=== PATIENT | female | born 1970 | race African-American/Black ===

== ENCOUNTER 2017-08-19 08:49 | Emergency (ER) | payer MEDICARE, MEDICAID ==
[~2017-08-19] VITALS: Ht 172.7 cm; Wt 110.0 kg
[~2017-08-19 08:49] MED LIST: BENZ1TAB PO; DEPA500T3 PO; HALO10 PO; HYDR-3133 PO; PERM5CRE4 TOP; PRED20 PO; TRIA.1%T EX
[2017-08-19 09:09] VITALS: BP 173/114; PULSE 95; RESP 20; TEMP 98.9; O2SAT 99
[2017-08-19] MEDS ORDERED: BENZ0.5T PO (09:15)
[2017-08-19] MEDS ORDERED: ZIPR1CAP12 PO (09:15)
--- NOTE | 2017-08-19 09:17 | PD ---
HPI Chief Complaint: Pain: Acute or Chronic Time Seen by Provider: 09:16 Travel History International Travel<30 days: No Contact w/Intl Traveler<30days: No Traveled to known affect area: No History of Present Illness HPI 47-year-old female came to the emergency room with history of unable to move her legs. Patient came by ambulance. She seemed to have a very flat affect and upon asking the real reason for her visit she just said that she did not know and was not feeling very good this morning. She did tell the nurse that she has been depressed. She has history of bipolar disorder. I also noticed that her blood pressure was very high. It was 175/115. Patient has history of hypertension but hasn't taken her blood pressure medication and a very long time she said. She last saw her primary care 2 years ago. She has been taking her psych medications however. Upon asking patient says that she has not had much appetite lately. She ate last meal last night and some friends gave her the food but she did not finish it. She doesn't remember the last time she took a shower. She has children and she said they're more than one but she doesn't know how many they don't live with her. Patient is quite obese however. As per the nurse she was able to get out of the ambulance stretcher and go back to the emergency room stretcher on her own without assistance. She denies of any suicidal ideations or hearing voices. [facility] Past Medical History Narrative Medical List of her past medical, surgical, social and family history is reviewed from the nursing note. Arthritis: No Asthma: No Autoimmune Disease: No Blood Disorders: No Bipolar Disorder: Yes Anxiety: Yes Depression: Yes Heart Rhythm Problems: No Cancer: No Cardiovascular Problems: No High Cholesterol: No Chemotherapy: No Chest Pain: No Congestive Heart Failure: No COPD: No Cerebrovascular Accident: No Diabetes: No Diminished Hearing: No Endocrine: No Gastrointestinal Disorders: No GERD: No Glaucoma: No Genitourinary: No Headaches: No Hiatal Hernia: No Hypertension: Yes Immune Disorder: No Implanted Vascular Access Dvce: No Kidney Stones: No Musculoskeletal: No Neurologic: No Psychiatric: Yes Reproductive: No Respiratory: No Migraines: No Myocardial Infarction: No Radiation Therapy: No Renal Failure: No Seizures: No Sickle Cell Disease: No Sleep Apnea: No Thyroid Disease: No Ulcer: No PNEUMOCCOCAL Vaccine (Year): 2 ?: Unknown : 1 Para: 1 Ectopic : No Ovarian Cysts: No Tubal Ligation: No Past Surgical History Abdominal Surgery: No AICD: No Arteriovenous Shunt: No Body Medical Devices: DENIES ANY MEDICAL CONDITIONS; ONLY SURGERY Cardiac Surgery: No Section: Yes Ear Surgery: No Endocrine Surgery: No Eye Surgery: No Genitourinary Surgery: No Gynecologic Surgery: No Hysterectomy: No Insulin Pump: No Joint Replacement: No Neurologic Surgery: No Oral Surgery: No Pacemaker: No Thoracic Surgery: No Other Surgery: No Social History Alcohol Use: Yes Tobacco Use: Yes (OCC) Substance Use: No Allergies-Medications (Allergen,Severity, Reaction): Coded Allergies: No Known Allergies (Verified , 08/21/17) Comments No known drug allergies. Reported Meds & Prescriptions Reported Meds & Active Scripts Active Amlodipine (Amlodipine Besylate) 10 Mg Tab 10 Mg PO DAILY Reported Ziprasidone 80 Mg Cap 80 Mg PO HS Narrative Medication List of her home medications reviewed from the nursing note. Review of Systems Except as stated in HPI: all other systems reviewed are Neg Physical Exam Narrative GENERAL: Awake, alert, morbidly obese, no obvious distress SKIN: Focused skin assessment warm/dry. HEAD: Atraumatic. Normocephalic. EYES: Pupils equal and round. No scleral icterus. No injection or drainage. ENT: No nasal bleeding or discharge. Dry mucous mental NECK: Trachea midline. No JVD. CARDIOVASCULAR: Regular rate and rhythm. No murmur appreciated. RESPIRATORY: No accessory muscle use. Clear to auscultation. Breath sounds equal bilaterally. GASTROINTESTINAL: Abdomen soft, non-tender, nondistended. Hepatic and splenic margins not palpable. MUSCULOSKELETAL: No obvious deformities. No clubbing. No cyanosis. No edema. NEUROLOGICAL: Awake and alert. No obvious cranial nerve deficits. Motor grossly within normal limits. Normal speech. PSYCHIATRIC: Appropriate mood and affect; insight and judgment normal. Data Data Last Documented VS Vital Signs Date Time Temp Pulse Resp B/P (MAP) Pulse Ox O2 Delivery O2 Flow Rate FiO2 08/19/17 13:00 08/19/17 12:57 77 17 100 Room Air 08/19/17 09:09 98.9 Orders Orders Complete Blood Count With Diff (08/19/17 09:28) Basic Metabolic Panel (Bmp) (08/19/17 09:28) Comprehensive Metabolic Panel (08/19/17 09:28) Urinalysis - C+S If Indicated (08/19/17 09:28) Drug Screen, Random Urine (08/19/17 09:28) Alcohol (Ethanol) (08/19/17 09:28) Clonidine (Catapres) (08/19/17 09:30) Urine Culture (08/19/17 09:40) Sodium Chlor 0.9% 1000 Ml Inj (Ns 1000 M (08/19/17 11:00) Nitrofurantoin Monohyd Macrocr (Macrobid (08/19/17 11:00) Sodium Chlorid 0.9% 500 Ml Inj (Ns 500 M (08/19/17 11:00) Labs Laboratory Tests Test 08/19/17 09:40 08/19/17 09:45 Urine Color DREW Urine Turbidity HAZY Urine pH 5.5 Urine Specific [place] 1.042 Urine Protein 100 mg/dL Urine Glucose (UA) TRACE mg/dL Urine Ketones TRACE mg/dL Urine Occult Blood NEG Urine Nitrite NEG Urine Bilirubin NEG Urine Urobilinogen 4.0 MG/DL Urine Leukocyte Esterase SMALL Urine RBC 3 /hpf Urine WBC 10 /hpf Urine Squamous Epithelial Cells 5 /hpf Urine Bacteria FEW /hpf Urine Hyaline Casts 14 /lpf Urine Mucus MANY /lpf Microscopic Urinalysis Comment CULTURE INDICATED Urine Opiates Screen NEG Urine Barbiturates Screen NEG Urine Amphetamines Screen NEG Urine Benzodiazepines Screen NEG Urine Cocaine Screen NEG Urine Cannabinoids Screen NEG White Blood Count 6.4 TH/MM3 Red Blood Count 4.75 MIL/MM3 Hemoglobin 11.5 GM/DL Hematocrit 36.1 % Mean Corpuscular Volume 76.1 FL Mean Corpuscular Hemoglobin 24.2 PG Mean Corpuscular Hemoglobin Concent 31.8 % Red Cell Distribution Width 17.9 % Platelet Count 273 TH/MM3 Mean Platelet Volume 9.2 FL Neutrophils (%) (Auto) 59.8 % Lymphocytes (%) (Auto) 29.4 % Monocytes (%) (Auto) 10.0 % Eosinophils (%) (Auto) 0.4 % Basophils (%) (Auto) 0.4 % Neutrophils # (Auto) 3.9 TH/MM3 Lymphocytes # (Auto) 1.9 TH/MM3 Monocytes # (Auto) 0.6 TH/MM3 Eosinophils # (Auto) 0.0 TH/MM3 Basophils # (Auto) 0.0 TH/MM3 CBC Comment DIFF FINAL Differential Comment Blood Urea Nitrogen 14 MG/DL Creatinine 1.26 MG/DL Random Glucose 89 MG/DL Total Protein 8.9 GM/DL Albumin 4.1 GM/DL Calcium Level 9.2 MG/DL Alkaline Phosphatase 62 U/L Aspartate Amino Transf (AST/SGOT) 24 U/L Alanine Aminotransferase (ALT/SGPT) 28 U/L Total Bilirubin 1.2 MG/DL Sodium Level 139 MEQ/L Potassium Level 3.4 MEQ/L Chloride Level 105 MEQ/L Carbon Dioxide Level 26.2 MEQ/L Anion Gap 8 MEQ/L Estimat Glomerular Filtration Rate 55 ML/MIN Ethyl Alcohol Level LESS THAN 3 MG/DL MDM Medical Decision Making Medical Screen Exam Complete: Yes Emergency Medical Condition: Yes Medical Record Reviewed: Yes Differential Diagnosis Hypertension, noncompliance with medication, depression Narrative Course 10:43 AM blood test results are back. Patient was initially given clonidine for her hypertension. Renal function is slightly elevated. She didn't appear dehydrated and I'll give her a liter fluid bolus. Patient will be discharged home on amlodipine. I will discharge her home after the. Procedures EKG Prior to Arrival: No Diagnosis Primary Impression: Depression Qualified Codes: F34.1 - Dysthymic disorder Additional Impressions: Hypertension Qualified Codes: I10 - Essential (primary) hypertension Noncompliance with medication regimen UTI (urinary tract infection) Qualified Codes: N39.0 - Urinary tract infection, site not specified Dehydration Referrals: Primary Care Physician 2 days Additional Instructions: Please return to the ER if the condition worsens or any other new concerns. Please fill the medication and start taking them for your blood pressure. Uncontrolled high blood pressure can lead to stroke, heart attack, kidney failure, blindness etc. Follow-up with your primary care. Follow-up with your psychiatrist as well. Med/Other Pt SpecificInfo: Prescription(s) given Scripts Amlodipine (Amlodipine) 10 Mg Tab 10 MG PO DAILY for Blood Pressure Management, #30 TAB 0 Refills Prov: Amber Arriola MD 08/19/17 Disposition: 01 DISCHARGE HOME Condition: Stable Amber Arriola MD Aug 19, 2017 09:16
[2017-08-19] MEDS ORDERED: cloNIDine HCL 0.1 MG TAB PO ONE (09:30)
[2017-08-19 10:14] LABS: AUTOMATED NEUTROPHIL # 3.9 TH/MM3 (1.8-7.7); BASOPHIL % 0.4 % (0.0-2.0); EOSINOPHIL % 0.4 % (0.0-4.0); HEMATOCRIT 36.1 % (35.0-46.0); HEMO FLAGS DIFF FINAL; LYMPH % 29.4 % (9.0-44.0); LYMPHOCYTE # 1.9 TH/MM3 (1.0-4.8); MEAN CELL VOLUME 76.1 FL (80.0-100.0); MEAN CORPUSCULAR HEMOGLOBIN 24.2 PG (27.0-34.0); MEAN CORPUSCULAR HGB CONC 31.8 % (32.0-36.0); NEUT % 59.8 % (16.0-70.0); PLATELET COUNT 273 TH/MM3 (150-450); RED BLOOD COUNT 4.75 MIL/MM3 (4.00-5.30); RED CELL DISTRIBUTION WIDTH 17.9 % (11.6-17.2); WHITE BLOOD COUNT 6.4 TH/MM3 (4.0-11.0)
[2017-08-19 10:27] LABS: ANION GAP 8 MEQ/L (5-15); AST (GOT) 24 U/L (15-37); BICARBONATE 26.2 MEQ/L (21.0-32.0); BLOOD UREA NITROGEN 14 MG/DL (7-18); CHLORIDE 105 MEQ/L (98-107); GLOMERULAR FILTRATION RATE 55 ML/MIN (>89); POTASSIUM 3.4 MEQ/L (3.5-5.1); SODIUM (NA) 139 MEQ/L (136-145)
[2017-08-19 10:30] LABS: ALKALINE PHOSPHATASE 62 U/L (45-117); ALT (GPT) 28 U/L (10-53); TOTAL BILIRUBIN ADULT 1.2 MG/DL (0.2-1.0)
[2017-08-19 10:35] LABS: ALCOHOL LESS THAN 3 MG/DL (0-5)
[2017-08-19 10:38] LABS: BACTERIA, URINE FEW /hpf; BLOOD, URINE NEG (NEG); COMMENT (UR) CULTURE INDICATED; CULTURE IF INDICATED CULTURE INDICATED; GLUCOSE,URINE TRACE mg/dL (NEG); HYALINE CAST, URINE 14 /lpf (RARE); KETONE, URINE TRACE mg/dL (NEG); MUCUS URINE MANY /lpf (OCC); NITRITE,URINE NEG (NEG); PH, URINE 5.5 (5.0-8.5); SQUAMOUS EPITHELIAL CELL URINE 5 /hpf (0-5)
[2017-08-19 10:41] LABS: URINE COLOR AMBER (YELLW/STRAW)
[2017-08-19] MEDS ORDERED: AMLO10TA2 PO (10:45)
[2017-08-19] MEDS ORDERED: MACR100C2 PO (10:48)
[2017-08-19] MEDS ORDERED: SODIUM CHLORID 0.9% 500 ML INJ 500 ML IV ONE (11:00)
[2017-08-19] MEDS ORDERED: SODIUM CHLOR 0.9% 1000 ML INJ 1,000 ML IV ONE (11:00)
[2017-08-19] MEDS ORDERED: NITROFURANTOIN MONOHYD MACROCR 100 MG CAP PO ONE (11:00)
[2017-08-19 12:57] VITALS: BP 176/89; PULSE 77; RESP 17; O2SAT 100
== END 2017-08-19 13:17 | disposition home or self-care (01) ==
LOC: NEPD 08:49
DX: F34.1 Dysthymic disorder (principal); I10 Essential (primary) hypertension; N39.0 Urinary tract infection, site not specified; B96.89 Other specified bacterial agents as the cause of diseases classified elsewhere; Z72.0 Tobacco use; Z79.899 Other long term (current) drug therapy
CPT/HCPCS: 80053; 80307; 81001; 85025; 87086; 96360; 99284; J7030; J7040

== ENCOUNTER 2017-08-21 05:50 | Emergency (ER) | payer MEDICARE, MEDICAID ==
[~2017-08-21] VITALS: Ht 172.7 cm; Wt 154.5 kg
[~2017-08-21 05:50] MED LIST changes: +AMLO10TA2 PO; +BENZ0.5T PO; -BENZ1TAB PO; -DEPA500T3 PO; -HALO10 PO; -HYDR-3133 PO; +MACR100C2 PO; -PERM5CRE4 TOP; -PRED20 PO; -TRIA.1%T EX; +ZIPR1CAP12 PO
[2017-08-21 05:53] VITALS: BP 183/109; PULSE 112; RESP 18; O2SAT 99
--- NOTE | 2017-08-21 07:13 | PD ---
HPI Chief Complaint: Psychiatric Symptoms Time Seen by Provider: 07:05 Travel History International Travel<30 days: No Contact w/Intl Traveler<30days: No Traveled to known affect area: No History of Present Illness HPI 47-year-old female presents voluntarily for psych evaluation. Says she has nowhere to go and that is why she came in. When I asked her what brought her into the emergency department she said "nothing." She denies suicidal or homicidal ideations. Denies hallucinations. Denies alcohol, drug use. Has no medical complaints. No known allergies. No other modifying factors or associated signs and symptoms. PFSH Past Medical History Arthritis: No Asthma: No Autoimmune Disease: No Blood Disorders: No Bipolar Disorder: Yes Anxiety: Yes Depression: Yes Heart Rhythm Problems: No Cancer: No Cardiovascular Problems: No High Cholesterol: No Chemotherapy: No Chest Pain: No Congestive Heart Failure: No COPD: No Cerebrovascular Accident: No Diabetes: No Patient Takes Glucophage: No Diminished Hearing: No Endocrine: No Gastrointestinal Disorders: No GERD: No Glaucoma: No Genitourinary: No Headaches: No Hiatal Hernia: No Hypertension: Yes Immune Disorder: No Implanted Vascular Access Dvce: No Kidney Stones: No Musculoskeletal: No Neurologic: No Psychiatric: Yes Reproductive: No Respiratory: No Immunizations Current: No Migraines: No Myocardial Infarction: No Radiation Therapy: No Renal Failure: No Seizures: No Sickle Cell Disease: No Sleep Apnea: No Thyroid Disease: No Ulcer: No Tetanus Vaccination: Unknown Influenza Vaccination: No PNEUMOCCOCAL Vaccine (Year): 2 ?: Unknown LMP: 08/14/17 Menopausal: Yes : 1 Para: 1 Ectopic : No Ovarian Cysts: No Tubal Ligation: No Past Surgical History Abdominal Surgery: No AICD: No Arteriovenous Shunt: No Body Medical Devices: DENIES ANY MEDICAL CONDITIONS; ONLY SURGERY Cardiac Surgery: No Section: Yes Ear Surgery: No Endocrine Surgery: No Eye Surgery: No Genitourinary Surgery: No Gynecologic Surgery: No Hysterectomy: No Insulin Pump: No Joint Replacement: No Neurologic Surgery: No Oral Surgery: No Pacemaker: No Thoracic Surgery: No Other Surgery: No Social History Alcohol Use: Yes (OCC) Tobacco Use: No Substance Use: No Allergies-Medications (Allergen,Severity, Reaction): Coded Allergies: No Known Allergies (Verified , 08/21/17) Reported Meds & Prescriptions Reported Meds & Active Scripts Active Amlodipine (Amlodipine Besylate) 10 Mg Tab 10 Mg PO DAILY Reported Ziprasidone 80 Mg Cap 80 Mg PO HS Review of Systems Except as stated in HPI: all other systems reviewed are Neg Physical Exam Narrative GENERAL: Well-nourished, well-developed white female patient, in no acute distress SKIN: Warm and dry. HEAD: Atraumatic. Normocephalic. EYES: Pupils equal and round. ENT: Mucosa pink and moist. NECK: Supple. Trachea midline. CARDIOVASCULAR: Regular rate and rhythm. No murmur appreciated. RESPIRATORY: No accessory muscle use. Clear to auscultation. Breath sounds equal bilaterally. GASTROINTESTINAL: Abdomen soft, non-tender, nondistended. Hepatic and splenic margins not palpable. Bowel sounds are active 4 quadrants. MUSCULOSKELETAL: No obvious deformities. No clubbing. No cyanosis. No edema. NEUROLOGICAL: Awake and alert. Oriented 3. No obvious cranial nerve deficits. Motor grossly within normal limits. Normal speech. Moves all extremities. 5/5 strength to all extremities. PSYCHIATRIC: No delusional thought processes. No hallucinations. Data Data Last Documented VS Vital Signs Date Time Temp Pulse Resp B/P (MAP) Pulse Ox O2 Delivery O2 Flow Rate FiO2 08/21/17 09:40 08/21/17 07:15 98.2 92 16 97 Room Air Orders Orders Diet Regular Basic (08/21/17 Breakfast) [facility] Medical Decision Making Medical Screen Exam Complete: Yes Emergency Medical Condition: Yes Medical Record Reviewed: Yes Differential Diagnosis Medical clearance for psych evaluation, depression, malingering Narrative Course Patient was seen here 2 days ago and labs were done at that time. Do not feel it is necessary to redraw labs at this time. Patient was given Macrobid for UTI when she was seen here last. Patient presents voluntarily. Physical examination and vital signs are essentially unremarkable. Patient has no medical complaints to report. Dr. Mcelroy evaluated patient and recommends the patient be discharged. The patient is malingering and has no reasons to be evaluated by psych. Instructed patient to follow up with primary care provider. Patient verbalizes understanding and agreement with treatment plan. Patient is medically cleared and stable for discharge. Discussed reasons to return to the emergency department. Patient agrees with treatment plan. The patients vital signs are stable and the patient is stable for outpatient follow-up and treatment. Patient discharged home, stable and in no acute distress. Diagnosis Primary Impression: Malingering Referrals: [facility] Psychiatrist Med/Other Pt SpecificInfo: No Meds Exist/No RX given Disposition: 01 DISCHARGE HOME Condition: Stable Anamaria Farr Aug 21, 2017 07:13
[2017-08-21 07:15] VITALS: BP 176/103; PULSE 92; RESP 16; TEMP 98.2; O2SAT 97
--- NOTE | 2017-08-21 09:22 | PD ---
Data Data Last Documented VS Vital Signs Date Time Temp Pulse Resp B/P (MAP) Pulse Ox O2 Delivery O2 Flow Rate FiO2 08/21/17 07:15 92 16 176/103 (127) 97 Room Air Orders Orders Psych Screen (08/21/17 06:35) Diet Regular Basic (08/21/17 Breakfast) MDM Supervised Visit with KRISTAL: Yes Narrative Course The history, exam, and medical decision-making in the associated midlevel provider note were completed with my assistance. I reviewed and agree with the findings presented. I attest that I had a [id number] encounter with the patient on the same day, and personally performed and documented my assessment and findings in the medical record. *My assessment and Findings: This is a 47-year-old female who has a history of bipolar disorder who presents to the emergency department for uncertain reasons. She does acknowledge that she needs somewhere to sleep and doesn't have anywhere to go. She says she usually stays with her family that she is having trouble staying there currently. She denies any thoughts of hurting herself or others. She appears on my assessment psychiatrically stable. I think she can be discharged home. I don't think she requires any additional testing or consultation. Her presentation appears to be driven by social factors. Diagnosis Primary Impression: Social problem Condition: Wanda Fatima MD Aug 21, 2017 09:22
== END 2017-08-21 10:03 | disposition home or self-care (01) ==
LOC: NEPD 05:50
DX: F31.9 Bipolar disorder, unspecified (principal); Z76.5 Malingerer [conscious simulation]
CPT/HCPCS: 99282

== ENCOUNTER 2017-12-11 08:50 | Emergency (ER) | payer MEDICARE, MEDICAID ==
[~2017-12-11] VITALS: Ht 177.8 cm; Wt 139.5 kg
[~2017-12-11 08:50] MED LIST changes: -BENZ0.5T PO; -MACR100C2 PO
[2017-12-11 08:52] VITALS: BP 197/93; TEMP 97.9
[2017-12-11] MEDS ORDERED: HALO5TAB PO (11:13)
[2017-12-11] MEDS ORDERED: cogentin PO (11:13)
[2017-12-11] MEDS ORDERED: HALO100P IM (11:13)
--- NOTE | 2017-12-11 11:17 | PD ---
HPI Chief Complaint: Edema Time Seen by Provider: 11:17 Travel History International Travel<30 days: No Contact w/Intl Traveler<30days: No Traveled to known affect area: No History of Present Illness HPI Patient is disheveled and smells strongly of urine. She is however dressed appropriately. Came in saying that she is out of her blood pressure medication and water pill and has been trying to contact her primary care but cannot get hold of him. She is here to get the prescriptions. Her blood pressure was very high as per her. When I went to see her in the room on the monitor the blood pressure at 157 systolic. She does not appear to be in any distress. She is awake and answering questions appropriately. She said she just got out of nursing home. [facility] Past Medical History Narrative Medical List of her past medical, surgical, social and family history is reviewed from the nursing note. Arthritis: No Asthma: No Autoimmune Disease: No Blood Disorders: No Bipolar Disorder: Yes Anxiety: Yes Depression: Yes Heart Rhythm Problems: No Cancer: No Cardiovascular Problems: No High Cholesterol: No Chemotherapy: No Chest Pain: No Congestive Heart Failure: No COPD: No Cerebrovascular Accident: No Diabetes: No Diminished Hearing: No Endocrine: No Gastrointestinal Disorders: No GERD: No Glaucoma: No Genitourinary: No Headaches: No Hiatal Hernia: No Hypertension: Yes Immune Disorder: No Implanted Vascular Access Dvce: No Kidney Stones: No Musculoskeletal: No Neurologic: No Psychiatric: Yes Reproductive: No Respiratory: No Immunizations Current: No Migraines: No Myocardial Infarction: No Radiation Therapy: No Renal Failure: No Seizures: No Sickle Cell Disease: No Sleep Apnea: No Thyroid Disease: No Ulcer: No Tetanus Vaccination: Unknown Influenza Vaccination: No PNEUMOCCOCAL Vaccine (Year): 2 ?: Unknown LMP: 10/2017 Menopausal: Yes : 1 Para: 1 Ectopic : No Ovarian Cysts: No Tubal Ligation: No Past Surgical History Abdominal Surgery: No AICD: No Arteriovenous Shunt: No Body Medical Devices: DENIES ANY MEDICAL CONDITIONS; ONLY SURGERY Cardiac Surgery: No Section: Yes Ear Surgery: No Endocrine Surgery: No Eye Surgery: No Genitourinary Surgery: No Gynecologic Surgery: No Hysterectomy: No Insulin Pump: No Joint Replacement: No Neurologic Surgery: No Oral Surgery: No Pacemaker: No Thoracic Surgery: No Other Surgery: No Social History Alcohol Use: Yes (OCC) Tobacco Use: No Substance Use: Yes ("weed") Allergies-Medications (Allergen,Severity, Reaction): Coded Allergies: No Known Allergies (Verified Adverse Reaction, Unknown, 12/11/17) Comments No known drug allergies. Reported Meds & Prescriptions Reported Meds & Active Scripts Active Amlodipine (Amlodipine Besylate) 10 Mg Tab 10 Mg PO DAILY Reported Benztropine (Benztropine Mesylate) Unknown Strength Tab 1 Tab PO HS Haloperidol 5 Mg Tab 5 Mg PO HS Haldol Decanoate Inj (Haloperidol Decanoate) 100 Mg/Ml Inj 100 Mg IM Q28D Narrative Medication List of her home medications reviewed from the nursing note. Review of Systems Except as stated in HPI: all other systems reviewed are Neg Physical Exam Narrative GENERAL: Awake, alert, morbidly obese, no obvious distress SKIN: Focused skin assessment warm/dry. Poor hygiene HEAD: Atraumatic. Normocephalic. EYES: Pupils equal and round. No scleral icterus. No injection or drainage. ENT: No nasal bleeding or discharge. Mucous membranes pink and moist. NECK: Trachea midline. No JVD. CARDIOVASCULAR: Regular rate and rhythm. No murmur appreciated. RESPIRATORY: No accessory muscle use. Clear to auscultation. Breath sounds equal bilaterally. GASTROINTESTINAL: Abdomen soft, non-tender, nondistended. Hepatic and splenic margins not palpable. MUSCULOSKELETAL: No obvious deformities. No clubbing. No cyanosis. No edema. NEUROLOGICAL: Awake and alert. No obvious cranial nerve deficits. Motor grossly within normal limits. Normal speech. PSYCHIATRIC: Appropriate mood and affect; insight and judgment normal. Data Data Last Documented VS Vital Signs Date Time Temp Pulse Resp B/P (MAP) Pulse Ox O2 Delivery O2 Flow Rate FiO2 12/11/17 11:35 12/11/17 11:20 87 14 100 Room Air 12/11/17 08:52 97.9 Orders Orders Ed Discharge Order (12/11/17 11:27) MDM Medical Decision Making Medical Screen Exam Complete: Yes Emergency Medical Condition: Yes Medical Record Reviewed: Yes Differential Diagnosis Prescription refill, essential hypertension Narrative Course 11:30 AM patient has been explained that she needs to go to her primary care to do prescription refills since emergency room is not the place for that. However I will give her a one-week supply of her amlodipine. She needs to contact her primary care before it runs out. Procedures EKG Prior to Arrival: No Diagnosis Primary Impression: Prescription refill Additional Impression: Essential hypertension Referrals: Primary Care Physician 3 days Additional Instructions: You need to follow up with her primary care and future for refill of prescriptions. The prescription given here today for your blood pressure is only good for 1 week. Please contact your primary care before this runs out. Med/Other Pt SpecificInfo: Prescription(s) given Disposition: 01 DISCHARGE HOME Condition: Stable Amber Arriola MD Dec 11, 2017 11:17
[2017-12-11 11:20] VITALS: BP 154/94; PULSE 87; RESP 14; O2SAT 100
[2017-12-11] MEDS ORDERED: AMLO10TA2 PO (11:25)
[2017-12-12] MEDS ORDERED: BENZ0.5T PO (12:18)
== END 2017-12-11 11:35 | disposition home or self-care (01) ==
LOC: NEPD 08:50
DX: I10 Essential (primary) hypertension (principal); F31.9 Bipolar disorder, unspecified; F12.90 Cannabis use, unspecified, uncomplicated
CPT/HCPCS: 99281

== ENCOUNTER 2018-07-13 12:52 | Inpatient (IN) ==
--- NOTE | 2018-07-13 13:36 | ED ---
HPI General Chief complaint: Psychiatric Symptoms Stated complaint: Psych eval / med clearance Time Seen by Provider: 07/13/18 13:36 Source: patient Mode of arrival: ambulatory Limitations: other History of Present Illness HPI narrative: 48-year-old female with history of bipolar disorder presents emergency department voluntarily for psychiatric evaluation. Patient provides no history to me. She does not respond to my questions, however she did tell nursing staff that she has bipolar and has not been taking her medication. Related Data Home Medications Medication Instructions Recorded Confirmed Unable to Obtain Home Meds 07/13/18 07/13/18 Allergies Allergy/AdvReac Type Severity Reaction Status Date / Time No Known Allergies AdvReac Unknown Uncoded 12/11/17 11:09 Review of Systems ROS Unobtainable ROS Unobtainable: unobtainable due to mental status PMFSH Medical History Medical History Bipolar disorder (Acute) Social History Social History Substance History: Unable to Obtain Smoking Status: Refused to answer How Often Do You Have a Drink Containing Alcohol: Unable to Obtain Recent Travel in [facility] within the Last 8 Weeks: No Recent Out of Country Travel within the Last 8 Weeks: No Exam Narrative Exam Narrative: GENERAL: Well-nourished female patient, sitting up in bed, in no acute distress. Patient appears to be responding to internal stimuli. She seems a bit anxious in the room. But without distress. SKIN: Focused skin assessment warm/dry. HEAD: Atraumatic. Normocephalic. EYES: Pupils equal and round. No scleral icterus. No injection or drainage. ENT: No nasal bleeding or discharge. Mucous membranes pink and moist. NECK: Trachea midline. No JVD. CARDIOVASCULAR: Tachycardic rate and rhythm. No murmur appreciated. RESPIRATORY: No accessory muscle use. Clear to auscultation. Breath sounds equal bilaterally. GASTROINTESTINAL: Abdomen soft, non-tender, nondistended. Hepatic and splenic margins not palpable. MUSCULOSKELETAL: No obvious deformities. No clubbing. No cyanosis. No edema. NEUROLOGICAL: Awake and alert. Patient moves all extremities spontaneously. She is not speaking to me. PSYCHIATRIC: Bizarre affect. Course Initial Documented Vital Signs Temperature 99.6 F 07/13/18 13:07 Pulse Rate 116 H 07/13/18 13:07 Respiratory Rate 18 07/13/18 13:07 Blood Pressure 126/92 H 07/13/18 13:07 Pulse Oximetry 98 07/13/18 13:07 Last Documented Vital Signs Temperature 99.6 F 07/13/18 13:07 Pulse Rate 92 H 07/13/18 16:48 Respiratory Rate 17 07/13/18 16:48 Blood Pressure 172/112 H 07/13/18 16:48 Pulse Oximetry 96 07/13/18 16:48 Medical Decision Making KRISTAL Attestation KRISTAL supervised visit: Yes Attestation: I, Dr. Grant, have reviewed the advance practice practitioner's documentation and am in agreement, met with the patient face to face, made the diagnosis, and the medical decision making was done by me. *My assessment and Findings: Patient is a 40-year-old female with history of bipolar disorder who comes in as a Grant act for acute psychosis. She will not respond to me when questions are asked and does appear to be responding to internal stimuli on evaluation. She has been medically cleared for psychiatric screening at this time. MDM Narrative Medical decision making narrative: 48-year-old female with history of bipolar disorder presents emergency department voluntarily for psychiatric evaluation. Patient appears without distress. She does appear anxious and to be responding to internal stimuli. Labs are ordered for medical clearance. They are reviewed by me without acute concern. Patient is medically cleared to undergo psychiatric screening for further evaluation and disposition. Mental health screening discussed with the patient. Psychiatric screen ordered. Differential Diagnosis Differential Diagnosis: Mood disorder versus personality disorder versus adjustment reaction disorder Medical Records Medical records reviewed: Yes I reviewed the patient's medical records. Lab Data Lab results reviewed: Yes I reviewed the patient's lab results. Result diagrams: 07/13/18 14:02 07/13/18 14:02 Lab Results 07/13/18 07/13/18 Range/Units 14:02 14:02 WBC 7.6 (4.0-11.0) th/mm3 RBC 5.02 (4.00-5.30) mil/mm3 Hgb 13.8 (11.6-15.3) gm/dL Hct 42.0 (35.0-46.0) % MCV 83.6 (80.0-100.0) fL MCH 27.5 (27.0-34.0) pg MCHC 32.9 (32.0-36.0) % RDW 14.1 (11.6-17.2) % Plt Count 302 (150-450) th/mm3 MPV 9.6 (7.0-11.0) fL Neut % (Auto) 68.3 (16.0-70.0) % Lymph % (Auto) 21.4 (9.0-44.0) % [place] % (Auto) 9.2 H (0.0-8.0) % Eos % (Auto) 0.6 (0.0-4.0) % Baso % (Auto) 0.5 (0.0-2.0) % Neut # (Auto) 5.2 (1.8-7.7) th/mm3 Lymph # (Auto) 1.6 (1.0-4.8) th/mm3 [place] # (Auto) 0.7 (0.0-0.9) th/mm3 Eos # (Auto) 0.0 (0.0-0.4) th/mm3 Baso # (Auto) 0.0 (0.0-0.2) th/mm3 WBC Differential . Differential Comment Auto diff final Sodium 140 (136-145) meq/L Potassium 3.6 (3.5-5.1) meq/L Chloride 104 (98-107) meq/L Carbon Dioxide 23.0 (21.0-32.0) meq/L Anion Gap 13 (5-15) meq/L BUN 18 (7-18) mg/dL Creatinine 1.14 H (0.50-1.00) mg/dL Estimated GFR 62 L (>89) mL/min Random Glucose 87 (74-106) mg/dL Calcium 9.5 (8.5-10.1) mg/dL TSH 1.620 (0.358-3.740) uIU/mL Serum Alcohol Less than 3 (0-5) mg/dL Discharge Plan Discharge Disposition Patient Disposition: 30 Still Patient Discharge Condition Condition: Stable Discharge Details Diagnosis: Acute psychosis Physicians Team ED Provider: Laura Grant ED Midlevel Provider: Marzena Kang Primary Care Provider: Elsa Ly Rxs /Orders / Referrals /Forms Prescriptions: No Action Unable to Obtain Home Meds RF: 0 Status ED Status: Medically Cleared
[2018-07-13 14:29] LABS: Baso % (Auto) 0.5 % (0.0-2.0); Eos % (Auto) 0.6 % (0.0-4.0); Hemoglobin 13.8 gm/dL (11.6-15.3); Lymph # (Auto) 1.6 th/mm3 (1.0-4.8); Lymph % (Auto) 21.4 % (9.0-44.0); Mean Corpuscular HGB Conc 32.9 % (32.0-36.0); Mean Corpuscular Hemoglobin 27.5 pg (27.0-34.0); Mean Corpuscular Volume 83.6 fL (80.0-100.0); Mean Platelet Volume 9.6 fL (7.0-11.0); Mono # (Auto) 0.7 th/mm3 (0.0-0.9); Mono % (Auto) 9.2 % (0.0-8.0); Neut # (Auto) 5.2 th/mm3 (1.8-7.7); Neut % (Auto) 68.3 % (16.0-70.0); Platelet Count 302 th/mm3 (150-450); Red Blood Count 5.02 mil/mm3 (4.00-5.30); Red Cell Distribution Width 14.1 % (11.6-17.2); White Blood Count 7.6 th/mm3 (4.0-11.0)
[2018-07-13 15:45] LABS: Anion Gap 13 meq/L (5-15); Blood Urea Nitrogen 18 mg/dL (7-18); Calcium 9.5 mg/dL (8.5-10.1); Chloride 104 meq/L (98-107); Glomerular Filtration Rate 62 mL/min (>89); Glucose,Random 87 mg/dL (74-106); Potassium 3.6 meq/L (3.5-5.1); Sodium 140 meq/L (136-145)
--- NOTE | 2018-07-13 18:39 | P.PNPSY ---
Patient seems to be experiencing increasing agitation, wide, staring gaze, frequent pacing. She has been largely non-verbal, however RIC Resendiz spoke with her and she was able to indicate she would like some medication for anxiety. I have ordered her 2 mg ativan PO.
--- NOTE | 2018-07-13 18:50 | ED ---
HPI - Psych - General Source: patient Mode of arrival: ambulatory Limitations: altered mental status - History of Present Illness MD complaint: altered mental status Onset (ago): year(s) Duration: intermittent, getting worse History of same: Yes Relieving factors: medication Context: not taking psychiatric medications Associated psychiatric symptoms: auditory hallucinations Associated symptoms: denies other symptoms Treatments prior to arrival: none - General Chief Complaint: Psychiatric Symptoms Stated Complaint: Psych eval / med clearance Time Seen by Provider: 07/13/18 13:36 - History of Present Illness HPI Narrative: This is a 48 year old, single, -[place] female who presents voluntarily to this facility for self-reported bizarre behavior. Patient is well known to this facility and has a history of bipolar with psychotic features. Her last inpatient psychiatric admission at this facility was in 2012. Reviewed electronic medical record, labs, and discussed case with staff. Toxicology sample has not yet been obtained. Patient evaluated in J[facility]. She was observed pacing in the hallway with a wide-eyed gaze and an ETO has been ordered for anxiety. Patient found awake and alert. She is oriented to self and place at least. Her speech is slow, the volume is low, however it is organized and logical. She responds with one to two word answers. She denies suicidal ideation, homicidal ideation, endorses auditory hallucinations but can not elaborate on what they are saying. She denies visual hallucinations. The patient is internally stimulated and appears to have severe thought blocking. Her pacing continues. Patient reports that she lives with her mother and father. She is a SMA patient. She advises that she smokes cigarettes, drinks alcohol, and smokes marijuana "sometimes". She is difficult to obtain any further information due to her internal stimulation. (Oneida Zavala) - Related Data Home Medications Medication Instructions Recorded Confirmed Unable to Obtain Home Meds 07/13/18 07/13/18 Allergies Allergy/AdvReac Type Severity Reaction Status Date / Time No Known Allergies AdvReac Unknown Uncoded 12/11/17 11:09 Review of Systems All other systems reviewed negative except as stated in HPI PMFSH - History History Provided By: Patient - Medical History Medical History: Medical History (Last Reviewed 07/13/18 @ 19:07 by EDILBERTO Gilman) Bipolar disorder - Tobacco History Smoking Status: Refused to answer - Alcohol History How Often Do You Have a Drink Containing Alcohol: Unable to Obtain - Substance Use History Substance History: Unable to Obtain - Travel History Recent Travel in the [place] Within the Last 8 Weeks: No Recent Travel Out of the Country Within the Last 8 Weeks: No - Immunization History Tetanus Immunization: Unable to Assess Hx Influenza Vaccine This Season: Unable to Assess Psychiatric History - Psychiatric History Psychiatric Treatment History: History of Psychiatric Treatment, History of Community Mental Health Treatment History of Inpatient Treatment: Yes - Psychiatric History Patient has extensive history of mental health admissions and treatment. (Oneida Zavala) - Legal History UTO (Oneida Zavala) - Family Psychiatric History UTO (Oneida Zavala) Physical Exam - General Limitations: other Mental Status Examination Appearance: Appropriate Consciousness: Alert Orientation: x4 Motor Activity: Normal gait Speech: Hesitant, Slow Language: Adequate Fund of Knowledge: Adequate Attention and Concentration: Inadequate Memory: Unremarkable (UTO) Mood: Anxious Affect: Anxious Thought Process & Associations: Other (UTO) Thought Content: Hallucinations Hallucination Type: Auditory Delusion Type: Other (Unable to diagnose) Suicidal Ideation: No Suicidal Plan: No Suicidal Intention: No Homicidal Ideation: No Homicidal Plan: No Homicidal Intention: No Insight: Poor Judgment: Poor Initial Documented Vital Signs Temperature 99.6 F 07/13/18 13:07 Pulse Rate 116 H 07/13/18 13:07 Respiratory Rate 18 07/13/18 13:07 Blood Pressure 126/92 H 07/13/18 13:07 Pulse Oximetry 98 07/13/18 13:07 Last Documented Vital Signs Temperature 96.2 F L 07/13/18 18:30 Pulse Rate 111 H 07/13/18 18:30 Respiratory Rate 20 07/13/18 18:30 Blood Pressure 172/112 H 07/13/18 16:48 Pulse Oximetry 100 07/13/18 18:30 MDM - Psych - Diagnosis (1) Acute psychosis Status: Acute - Differential Diagnosis Likely: bipolar disorder - Lab Data Result diagrams: 07/13/18 14:02 07/13/18 14:02 - [facility] Narrative Medical decision making narrative: Patient is internally stimulated and experiencing thought blocking. She is unable to provide adequate history and does not appear capable of caring for herself. Therefore, I am admitting her to the 2600 unit for further evaluation and treatment. She has been placed under a BA as she does not have the capacity to sign in voluntarily and is a danger to herself in her current condition. (Oneida Zavala) - Lab Data Lab Results 07/13/18 07/13/18 Range/Units 14:02 14:02 WBC 7.6 (4.0-11.0) th/mm3 RBC 5.02 (4.00-5.30) mil/mm3 Hgb 13.8 (11.6-15.3) gm/dL Hct 42.0 (35.0-46.0) % MCV 83.6 (80.0-100.0) fL MCH 27.5 (27.0-34.0) pg MCHC 32.9 (32.0-36.0) % RDW 14.1 (11.6-17.2) % Plt Count 302 (150-450) th/mm3 MPV 9.6 (7.0-11.0) fL Neut % (Auto) 68.3 (16.0-70.0) % Lymph % (Auto) 21.4 (9.0-44.0) % [place] % (Auto) 9.2 H (0.0-8.0) % Eos % (Auto) 0.6 (0.0-4.0) % Baso % (Auto) 0.5 (0.0-2.0) % Neut # (Auto) 5.2 (1.8-7.7) th/mm3 Lymph # (Auto) 1.6 (1.0-4.8) th/mm3 [place] # (Auto) 0.7 (0.0-0.9) th/mm3 Eos # (Auto) 0.0 (0.0-0.4) th/mm3 Baso # (Auto) 0.0 (0.0-0.2) th/mm3 WBC Differential . Differential Comment Auto diff final Sodium 140 (136-145) meq/L Potassium 3.6 (3.5-5.1) meq/L Chloride 104 (98-107) meq/L Carbon Dioxide 23.0 (21.0-32.0) meq/L Anion Gap 13 (5-15) meq/L BUN 18 (7-18) mg/dL Creatinine 1.14 H (0.50-1.00) mg/dL Estimated GFR 62 L (>89) mL/min Random Glucose 87 (74-106) mg/dL Calcium 9.5 (8.5-10.1) mg/dL TSH 1.620 (0.358-3.740) uIU/mL Serum Alcohol Less than 3 (0-5) mg/dL
--- NOTE | 2018-07-14 12:32 | P.HPPSY ---
Provisional Diagnosis Admission Date: July 13, 2018 20:53 [place] I.: 1. Schizoaffective disorder, bipolar type Rule out bipolar disorder, severe with psychotic features [place] II.: Deferred Competence Certification of Person's Competence To Provide Express and Informed Consent I have personally examined Placido Donaldson, a person being served at [facility] on, July 14, 2018 1232. Express and informed consent means consent voluntarily given in writing, by a competent person, after sufficient explanation and disclosure of the subject matter involved to enable the person to make a knowing and willful decision without any element of force, fraud, deceit, duress, or other form of constraint or coercion. This person is 18 years of age or older, is not now known to be incompetent to consent to treatment with a guardian advocate, and does not have a health care surrogate or proxy currently making medical treatment decisions. I have found this person to be one of the following: [X] Competent to provide express and informed consent, as defined above, for voluntary admission to this facility and is competent to provide express and informed consent for treatment. He/she has the consistent capacity to make well reasoned, willful, and knowing decisions concerning his or her medical or mental health treatment. The person fully and consistently understands the purpose of the admission for examination/placement and is fully capable of personally exercising all rights assured under [place] [] Incompetent to provide express and informed consent to voluntary admission, and this is incompetent to provide express and informed consent to treatment. The person must be transferred to involuntary status and a petition for a guardian advocate filed with the Circuit Court. [] Refusing to provide express and informed consent to voluntary admission but is competent to provide express and informed consent for treatment. The person must be discharged or transferred to involuntary status. Form shall be completed within 24 hours of a person's arrival at the receiving facility and filed in the clinical record of each person: 1. Admitted on a voluntary basis 2. Permitted to provide express and informed consent to his/her own treatment 3. Allowed to transfer from involuntary to voluntary status 4. Prior to permitting a person to consent to his or her own treatment after having been previously found incompetent to consent to treatment. History of Present Illness Capacity: Has capacity Chief Complaint: Psychosis History of Present Illness: Ms. Donaldson is a 48-year-old female with a history of bipolar disorder who presented initially voluntarily to the emergency department for psychiatric evaluation. She was evaluated by the psychiatric nurse practitioner and placed under a Grant act by the ED provider. Reviewing the electronic medical record, I note that the patient was psychiatrically admitted most recently under Dr. Mcdonald in 2012. She was on Depakote and Haldol at that time. I have also called over to [facility] where patient most recently sought outpatient care per her report, and the patient was receiving Haldol Decanoate and Geodon as well as Cogentin from them, although she apparently had not filled a prescription in some time. Patient seen and examined with nurse. Chart reviewed. Case discussed with nursing staff. On my examination today, the patient presents as psychomotor slowed. She is somewhat disheveled. She is fairly hypoverbal and affect is flat. Behavior seems somewhat disorganized. Poverty of thought is present. She denies AVH. She denies SI or HI. I can elicit no paranoia, although the patient is a little watchful, nor can I elicit any other delusional material. Mood is described as "all right." She does complain of poor sleep and says that her appetite is only "so-so." No hypomanic or manic symptoms. No depressive symptoms. Remainder of the psychiatric ROS is negative. No acute physical complaints. Past psychiatric history: The patient reports a history of bipolar disorder. She has followed outpatient at [facility] in the past. Most recent psychiatric admission was here at [facility]. She denies a history of suicide attempts. She does say that she has a history of violent behavior "sometimes." Family history: The patient reports there is a family history of bipolar illness. She denies a family history of suicide. Chemical dependency history: The patient reports that she drinks occasional alcohol. It does not sound like this is excessive. No reported history of DTs or seizures. No other substance use reported. Social history: Patient reports that she lives with her mother and brother. She has some college education. She previously was on SSI but says that she received her last check last month. Unclear why SSI has been discontinued. She denies any legal history. Denies any access to guns or firearms. She reports that she is roman catholic "sometimes." She reports a history of trauma "sometimes." It does not appear that she is currently the victim of abuse or mistreatment. No reported PTSD symptoms. She does not have any particular hobbies. - Inpatient Certification I certify that the inpatient services were ordered in accordance with Medicare regulations governing the order. This includes certification that hospital inpatient services are reasonable and necessary and in the case of services not specified as inpatient-only under 42 CFR 419.22(n), that they are appropriately provided as inpatient services in accordance to with the 2-midnight benchmark under 43 CFR 412.3(e) I certify that inpatient psychiatric hospital services are medically necessary. Evaluation and treatment and/or diagnostic testing are expected to improve the patient's condition. The patient needs on a daily basis, active treatment furnished directly by or requiring the supervision of inpatient psychiatric facility personnel. Estimated Total Length of Stay (Days): 9 (7-9) Plans for Post Hospital Care: Not yet determined Review of Systems All other systems reviewed negative except as stated in HPI (Limitation: Poor historian) PMF - Medical History Medical History: Medical History (Last Reviewed 07/13/18 @ 19:07 by Oneida Zavala [employer]PRES[employer]ATIVES) Bipolar disorder Quality Measures - Patient Strengths Patient's strengths (minimum of 2): In a monitored setting. Verbally fluent. Medications and Allergies Allergies Allergy/AdvReac Type Severity Reaction Status Date / Time No Known Allergies AdvReac Unknown Uncoded 12/11/17 11:09 Home Medications Medication Instructions Recorded Confirmed Type Unable to Obtain Home Meds 07/13/18 07/13/18 History Results - Labs CBC & Chem 7: 07/13/18 14:02 07/13/18 14:02 Labs: Laboratory Results - last 24 hr 07/13/18 07/13/18 14:02 14:02 WBC 7.6 RBC 5.02 Hgb 13.8 Hct 42.0 MCV 83.6 MCH 27.5 MCHC 32.9 RDW 14.1 Plt Count 302 MPV 9.6 Neut % (Auto) 68.3 Lymph % (Auto) 21.4 [place] % (Auto) 9.2 H Eos % (Auto) 0.6 Baso % (Auto) 0.5 Neut # (Auto) 5.2 Lymph # (Auto) 1.6 [place] # (Auto) 0.7 Eos # (Auto) 0.0 Baso # (Auto) 0.0 WBC Differential . Differential Comment Auto diff final Sodium 140 Potassium 3.6 Chloride 104 Carbon Dioxide 23.0 Anion Gap 13 BUN 18 Creatinine 1.14 H Estimated GFR 62 L Random Glucose 87 Calcium 9.5 TSH 1.620 Serum Alcohol Less than 3 Laboratories reviewed. Besides mildly decreased GFR, no clinically significant laboratory abnormalities noted. Exam Vital signs: Vital Signs 07/13/18 13:07 07/13/18 16:47 07/13/18 16:48 Temperature 99.6 F Pulse Rate 116 H 90 92 H Respiratory Rate 18 17 17 Blood Pressure 126/92 H 172/107 H 172/112 H Pulse Oximetry 98 96 96 07/13/18 18:30 07/13/18 20:10 07/14/18 06:09 Temperature 96.2 F L 97.4 F L 98.1 F Pulse Rate 111 H 123 H 88 Respiratory Rate 20 18 21 Blood Pressure 141/100 H 146/104 H Pulse Oximetry 100 96 98 07/14/18 11:29 Temperature 98.6 F Pulse Rate 76 Respiratory Rate 16 Blood Pressure 160/67 H Pulse Oximetry 99 Intake & Output 07/13/18 07/14/18 07/14/18 18:59 06:59 18:59 Weight 117.934 kg 139.5 kg Other: Weight On Admission 139.5 kg Narrative: Physical examination was completed by the ED provider. On my examination today , the patient appears to be in no acute physical distress. No motor abnormalities noted although the patient is somewhat psychomotor slowed. Laboratories and vital signs reviewed. Mental Status Examination Appearance: Disheveled Consciousness: Alert, Vigilant Orientation: Person, Place (At least) Motor Activity: Other (Psychomotor slowed) Speech: Hesitant, Slow Language: Adequate Fund of Knowledge: Adequate Attention and Concentration: Easily distracted Memory: Impaired (Psychosis interferes) Mood: Other ("All right") Affect: Flat Thought Process & Associations: Other (Slowed) Thought Content: Thought blocking Hallucination Type: None Delusion Type: Other (Guarded) Suicidal Ideation: No Suicidal Plan: No Suicidal Intention: No Homicidal Ideation: No Homicidal Plan: No Homicidal Intention: No Insight: Poor Judgment: Poor Assessment and Plan - Assessment (1) Schizoaffective disorder, bipolar type Code(s): F25.0 - Schizoaffective disorder, bipolar type Status: Acute - Plan Plan: 48-year-old female with psychiatric history as detailed above who is presently admitted to the inpatient psychiatric unit under a Grant act. On my examination today, the patient presents as psychomotor slowed, hypoverbal with flat affect. Behavior is somewhat disorganized and thought blocking is present. She does not have much in the way of affective symptoms, and it does not appear that she is in the midst of a mood episode. Rather, I suspect that she is experiencing a psychotic decompensation in the setting of reported medication nonadherence, and I suspect the more apt diagnosis would be schizoaffective disorder bipolar type. Patient requires psychiatric hospitalization at this time for safety, observation and stabilization. Admit inpatient. Voluntary status. Check LFTs and beta hCG. So long as these are unremarkable, I will resume Depakote and Haldol as had been prescribed by Dr. Mcdonald. To consider Haldol Decanoate. Patient was also on some scheduled Cogentin during her most recent admission, and I will resume this as well to prophylaxis against EPS. Additional Cogentin as needed for EPS. Atarax as needed for anxiety. Trazodone as needed for sleep. Check EKG for QTC. Plan to obtain a Depakote level after the appropriate interval. Vitals every shift. Counselor to see. Collateral information. Disposition planning. Estimated length of stay: 7-9 days. Justification for Continued Inpatient Stay: See above Discharge Planning: Pending psychiatric stabilization. Request Healthcare Surrogate/Guardian Advocate?: No
[2018-07-14] MEDS ORDERED: Aluminum/Magnesium/Simethacone Susp 30 ML UDC PO PRN (13:43)
[2018-07-14] MEDS ORDERED: Benztropine Inj 2 MG/2 ML Ampul IM PRN (13:43)
[2018-07-14 14:37] LABS: Albumin 3.6 g/dL (3.4-5.0)
--- NOTE | 2018-07-14 17:06 | ECG ---
Date Performed: 07/14/2018 Time Performed: 15:42:22 PTAGE: 48 years EKG: Sinus rhythm NONSPECIFIC T-WAVE ABNORMALITY ABNORMAL ECG Compared to prior electrocardiogram, Nonspecific T wave changes are now present . PREVIOUS TRACING : 06/19/2005 21.36 DOCTOR: Luke Mclean Interpretating Date/Time 07/14/2018 17:05:16
[2018-07-14] MEDS: Divalproex 500 MG DR Tablet PO SCH (20:24)
[2018-07-14] MEDS: Haloperidol 5 MG Tablet PO SCH (20:24)
[2018-07-15] MEDS: Divalproex 500 MG DR Tablet PO SCH ×2 (08:39→20:45)
[2018-07-15] MEDS: Haloperidol 5 MG Tablet PO SCH ×2 (08:39→20:45)
[2018-07-15 09:25] LABS: Calcium 8.5 mg/dL (8.5-10.1); Carbon Dioxide 28.2 meq/L (21.0-32.0); Chol/HDL Ratio 3.2 Ratio; HDL Cholesterol 40.5 mg/dL (40.0-60.0); Potassium 3.4 meq/L (3.5-5.1)
--- NOTE | 2018-07-15 13:45 | P.PNPSY ---
Subjective Chief Complaint: Psychosis Remarks: Patient seen and examined with nurse. Chart reviewed. Case discussed with nursing staff. Patient is reportedly taking meals in her room but is coming out at times to watch television in the day area. Case discussed in treatment team. Counselor to reach out the patient's family for collateral information. On my examination today, the patient is hypoverbal and flat. She denies any SI or HI. Denies any AVH. Mood is "alright." Some thought blocking present. No side effects from medications. We discuss her medication regimen and treatment plan. No physical complaints. Vital Signs Temp Pulse Resp BP Pulse Ox 07/15/18 07:01 98.4 F 79 18 130/76 100 07/14/18 18:00 98.3 F 62 18 141/95 H 98 Laboratory Results - last 24 hr 07/14/18 07/14/18 07/15/18 14:04 14:04 08:04 Sodium 141 Potassium 3.4 L Chloride 106 Carbon Dioxide 28.2 Anion Gap 7 BUN 17 Creatinine 0.86 Estimated GFR 85 L Random Glucose 78 Calcium 8.5 D Total Bilirubin 1.1 H Direct Bilirubin 0.3 H Indirect Bilirubin 0.8 AST 21 ALT 21 Alkaline Phosphatase 57 Total Protein 8.0 Albumin 3.6 Triglycerides 57 Cholesterol 130 LDL Cholesterol, Calc 78 HDL Cholesterol 40.5 Cholesterol/HDL Ratio 3.20 Beta HCG, Qual Less than 1.0 Labs reviewed. Hypokalemia noted and repleted. EKG read as sinus rhythm with a QTc of 408 ms, not prolonged. Review of Systems All other systems reviewed negative except as stated in HPI Mental Status Examination Appearance: Other (Fair grooming) Consciousness: Alert, Vigilant Orientation: Person, Place (At least) Motor Activity: Other (Remains a little psychomotor slowed) Speech: Hesitant Language: Adequate Fund of Knowledge: Adequate Attention and Concentration: Easily distracted Memory: Unremarkable Mood: Other ("All right") Affect: Flat Thought Process & Associations: Other (Slowed) Thought Content: Thought blocking Hallucination Type: None Delusion Type: None Suicidal Ideation: No Suicidal Plan: No Suicidal Intention: No Homicidal Ideation: No Homicidal Plan: No Homicidal Intention: No Insight: Poor Judgment: Poor Assessment and Plan - Assessment (1) Schizoaffective disorder, bipolar type Code(s): F25.0 - Schizoaffective disorder, bipolar type Status: Acute - Plan Plan: Continue current psychotropics as ordered. To consider further titration of patient's Haldol tomorrow if psychotic symptoms remain on improved. Depakote and ammonia level ordered for Saturday morning. Continue to monitor on the inpatient unit. I have encouraged participation in groups and unit activities. Continue other care as ordered. Justification for Continued Inpatient Stay: High risk for decompensation in less restrictive environment. Discharge Planning: Pending psychiatric stabilization. Request Healthcare Surrogate/Guardian Advocate?: No
[2018-07-15 17:06] LABS: Hemoglobin A1c 4.9 % (4.3-6.0)
[2018-07-16] MEDS: Haloperidol 5 MG Tablet PO SCH ×2 (08:54→20:39)
[2018-07-16] MEDS: Divalproex 500 MG DR Tablet PO SCH ×2 (08:55→20:39)
--- NOTE | 2018-07-16 11:26 | P.PNPSY ---
Subjective Chief Complaint: Psychosis Remarks: Patient seen and examined with nurse. Chart reviewed. Case discussed with nursing staff. Case discussed with counselor. On my examination today, the patient presents as somewhat guarded. Her affect remains flat. Thought blocking present. She is seclusive to room. She did not eat any meals except for dinner yesterday and has not been out for breakfast today. When I inquire as to her oral intake, the patient says that she will try to get out for a meal today. I have encouraged ample hydration. She denies any suicidal or homicidal ideation. Denies any audiovisual hallucinations. No physical complaints. Agreeable to medication adjustment today. Vital Signs Temp Pulse Resp BP Pulse Ox 07/16/18 06:00 98.4 F 74 18 110/79 100 07/15/18 18:05 98.1 F 100 H 18 143/80 H 98 Laboratory Results - last 24 hr 07/15/18 08:04 Hemoglobin A1c 4.9 Labs reviewed. Review of Systems All other systems reviewed negative except as stated in HPI Mental Status Examination Appearance: Other (Fair grooming) Consciousness: Alert Orientation: Person, Place (At least) Motor Activity: Other (Psychomotor slowed. No other motor abnormalities noted.) Speech: Hesitant Language: Adequate Fund of Knowledge: Adequate Attention and Concentration: Easily distracted Memory: Unremarkable Mood: Other (Calm) Affect: Flat Thought Process & Associations: Other (Slowed) Thought Content: Thought blocking Hallucination Type: None Delusion Type: None Suicidal Ideation: No Suicidal Plan: No Suicidal Intention: No Homicidal Ideation: No Homicidal Plan: No Homicidal Intention: No Insight: Poor Judgment: Poor Assessment and Plan - Assessment (1) Schizoaffective disorder, bipolar type Code(s): F25.0 - Schizoaffective disorder, bipolar type Status: Acute - Plan Plan: Titrate Haldol to 7.5 mg twice daily. To consider Haldol Decanoate. Continue Depakote as ordered with plans for Depakote level later in the week. Monitor oral intake. Encouraged group participation. Continue to monitor on the inpatient unit. Continue other medications and care as ordered. Justification for Continued Inpatient Stay: Medication changes. Impairment in reality construction. High risk for decompensation in less restrictive environment. Discharge Planning: Pending psychiatric stabilization. Possible discharge beginning of next week. Request Healthcare Surrogate/Guardian Advocate?: No
[2018-07-16] MEDS: traZODone 50 MG Tablet PO PRN (20:39)
[2018-07-17] MEDS: Divalproex 500 MG DR Tablet PO SCH ×2 (08:59→21:13)
[2018-07-17] MEDS: Haloperidol 5 MG Tablet PO SCH (09:00)
--- NOTE | 2018-07-17 15:00 | P.PNPSY ---
Subjective Chief Complaint: Psychosis Remarks: Patient seen and examined with nurse. Chart reviewed. I note the patient ate only dinner last night. Case discussed with nurse who posits that the patient is only taking 1 meal a day because she is reluctant to come out into the day area. The nurse has taken the patient's lunch to the patient's room, and the patient was able to eat at least a portion of her lunch today. On my examination today, the patient remains secluded in her room. Her affect is somewhat more reactive today, and she does even smile at intervals. When I ask about her reluctance to come into the day area, the patient says "I do not want to be around people." In context, some degree of paranoia is suspected. She denies any audiovisual hallucinations. Denies any suicidal ideation. Denies any side effects from medications. No physical complaints. Vital Signs Temp Pulse Resp BP Pulse Ox 07/17/18 05:42 98 F 81 16 153/84 H 98 07/16/18 17:57 97.3 F L 99 H 18 139/88 100 Intake and Output 07/16/18 07/17/18 07/17/18 22:59 06:59 14:59 Intake Total 240 / 240 Balance 240 / 240 Intake: Oral 240 / 240 Other: Weight 139.4 kg I requested a weight today given patient's oral intake, and this appears to be stable. Labs reviewed. No new labs. Review of Systems All other systems reviewed negative except as stated in HPI (Limitation: Poor historian) Mental Status Examination Appearance: Other (Fair grooming) Consciousness: Alert Orientation: Person, Place (At least) Motor Activity: Other (Remains a little psychomotor slowed. No other motoric abnormalities appreciated.) Speech: Hesitant Language: Adequate Fund of Knowledge: Adequate Attention and Concentration: Easily distracted Memory: Unremarkable Mood: Other (Calm) Affect: Blunt (Somewhat more reactive today) Thought Process & Associations: Other (Slowed) Thought Content: Thought blocking Hallucination Type: None Delusion Type: Paranoid (Suspected) Suicidal Ideation: No Homicidal Ideation: No Insight: Poor Judgment: Poor Assessment and Plan - Assessment (1) Schizoaffective disorder, bipolar type Code(s): F25.0 - Schizoaffective disorder, bipolar type Status: Acute - Plan Plan: Titrate Haldol to 10 mg twice daily to target residual psychotic symptoms. The patient does seem to be improving somewhat with current regimen. Continue other psychotropics as ordered. Continue to monitor on the inpatient unit. Continue other medications and care as ordered. Justification for Continued Inpatient Stay: Medication changes. Impairment in reality construction. High risk for decompensation in less restrictive environment. Discharge Planning: Pending psychiatric stabilization. Request Healthcare Surrogate/Guardian Advocate?: No
[2018-07-17] MEDS: traZODone 50 MG Tablet PO PRN (21:13)
[2018-07-17 21:47] LABS: Amphetamine Screen,Urine Neg (Neg); Barbiturate Screen,Urine Neg (Neg); Cannabinoid Screen,Urine Neg (Neg); Cocaine Screen,Urine Neg (Neg)
[2018-07-17 22:06] LABS: Opiate Screen,Urine Neg (Neg)
[2018-07-18] MEDS: Divalproex 500 MG DR Tablet PO SCH ×2 (08:31→21:22)
--- NOTE | 2018-07-18 15:50 | P.PNPSY ---
Subjective Chief Complaint: Psychosis Remarks: Patient seen in her room with nurse, chart reviewed, patient compliant medication. Patient continues to isolate somewhat those but is been no behavior problems, continues somewhat depressed though today denying suicidality or voices. For now continue treatment Review of Systems All other systems reviewed negative except as stated in HPI Mental Status Examination Appearance: Other (Fair grooming) Consciousness: Alert Orientation: Person, Place (At least) Motor Activity: Other (Remains a little psychomotor slowed. No other motoric abnormalities appreciated.) Speech: Hesitant Language: Adequate Fund of Knowledge: Adequate Attention and Concentration: Easily distracted Memory: Unremarkable Mood: Other (Calm) Affect: Blunt (Somewhat more reactive today) Thought Process & Associations: Other (Slowed) Thought Content: Thought blocking Hallucination Type: None Delusion Type: Paranoid (Suspected) Suicidal Ideation: No Suicidal Plan: No Suicidal Intention: No Homicidal Ideation: No Homicidal Plan: No Homicidal Intention: No Insight: Poor Judgment: Poor Assessment and Plan - Assessment (1) Schizoaffective disorder, bipolar type Code(s): F25.0 - Schizoaffective disorder, bipolar type Status: Acute - Plan Plan: Patient remained somewhat depressed and isolating though now denies suicidality or plan medication Justification for Continued Inpatient Stay: At this time patient would decompensate a place to a lower level of care Discharge Planning: To be determined Request Healthcare Surrogate/Guardian Advocate?: No
[2018-07-19] MEDS: Divalproex 500 MG DR Tablet PO SCH ×2 (08:39→20:22)
--- NOTE | 2018-07-19 13:43 | P.PNPSY ---
Subjective Chief Complaint: Psychosis Remarks: Pt seen and discussed with staff. Chart reviewed. She was admitted for psychosis. She remains paranoid and guarded. She interacts minimally and is very watchful on unit. Mental Status Examination Appearance: Other (Fair grooming) Consciousness: Alert Orientation: Person, Place (At least) Motor Activity: Other (Remains a little psychomotor slowed. No other motoric abnormalities appreciated.) Speech: Hesitant Language: Adequate Fund of Knowledge: Adequate Attention and Concentration: Easily distracted Memory: Unremarkable Mood: Other (Calm) Affect: Blunt (Somewhat more reactive today) Thought Process & Associations: Other (somewhat concrete) Thought Content: Thought blocking Hallucination Type: None Delusion Type: Paranoid Suicidal Ideation: No Suicidal Plan: No Suicidal Intention: No Homicidal Ideation: No Homicidal Plan: No Homicidal Intention: No Insight: Poor Judgment: Poor Assessment and Plan - Assessment (1) Schizoaffective disorder, bipolar type Code(s): F25.0 - Schizoaffective disorder, bipolar type Status: Acute - Plan Plan: Continue current tx plan Justification for Continued Inpatient Stay: impairments in reality testing Request Healthcare Surrogate/Guardian Advocate?: No
[2018-07-20] MEDS: Divalproex 500 MG DR Tablet PO SCH ×2 (08:25→20:14)
--- NOTE | 2018-07-20 13:23 | P.PNPSY ---
Subjective Chief Complaint: Psychosis Remarks: Pt seen and discussed with staff. She has been compliant with medications and denies side effects. She has been isolative to her room, refusing to come out for meals. She remains paranoid, but did do ADLs today. Mental Status Examination Appearance: Other (Fair grooming) Consciousness: Alert Orientation: Person, Place (At least) Motor Activity: Other (Remains a little psychomotor slowed. No other motoric abnormalities appreciated.) Speech: Hesitant Language: Adequate Fund of Knowledge: Adequate Attention and Concentration: Easily distracted Memory: Unremarkable Mood: Other (Calm) Affect: Flat Thought Process & Associations: Other (somewhat concrete) Thought Content: Thought blocking Hallucination Type: None Delusion Type: Paranoid Suicidal Ideation: No Suicidal Plan: No Suicidal Intention: No Homicidal Ideation: No Homicidal Plan: No Homicidal Intention: No Insight: Poor Judgment: Poor Assessment and Plan - Assessment (1) Schizoaffective disorder, bipolar type Code(s): F25.0 - Schizoaffective disorder, bipolar type Status: Acute - Plan Plan: Continue current tx plan Justification for Continued Inpatient Stay: impairments in reality testing Request Healthcare Surrogate/Guardian Advocate?: No
[2018-07-21] MEDS: Divalproex 500 MG DR Tablet PO SCH ×2 (09:09→22:04)
--- NOTE | 2018-07-21 13:41 | P.PNPSY ---
Subjective Chief Complaint: Psychosis Remarks: Patient seen and examined with nurse. Chart reviewed. Case discussed with nursing staff. Case discussed with counselor who will reach out to patient's family for collateral information. On my examination today, the patient presents as more spontaneous in conversation, and her affect is more reactive. She does remained fairly seclusive to room. She says that she visited with her mother over the weekend and has been speaking with other members of her family. Mood is "mellow." She denies any suicidal or homicidal ideation. Denies any AVH. Denies any side effects from medications. No physical complaints. Vital Signs Temp Pulse Resp BP Pulse Ox 07/21/18 05:40 98.1 F 70 16 120/84 99 07/20/18 17:40 98.4 F 83 18 134/88 98 Intake and Output 07/20/18 07/21/18 07/21/18 22:59 06:59 14:59 Intake Total 240 / 240 Balance 240 / 240 Intake: Oral 240 / 240 Other: Weight 142.3 kg Labs reviewed. Depakote level therapeutic. Ammonia level slightly elevated, but the patient has no signs of hyperammonemic encephalopathy. I have discussed concerns regarding the ammonia level with the patient, and we agreed to hold off on initiating e.g. lactulose or Carnitor at this time. The patient will follow up regarding this issue on an outpatient basis. Review of Systems All other systems reviewed negative except as stated in HPI Mental Status Examination Appearance: Other (Fair grooming) Consciousness: Alert Orientation: Person, Place (At least) Motor Activity: Other (No motor abnormalities noted) Speech: Unremarkable Language: Adequate Fund of Knowledge: Adequate Attention and Concentration: Easily distracted Memory: Unremarkable Mood: Appropriate Affect: Blunt (More reactive today) Thought Process & Associations: Intact Thought Content: Appropriate Hallucination Type: None Delusion Type: None Suicidal Ideation: No Suicidal Plan: No Suicidal Intention: No Homicidal Ideation: No Homicidal Plan: No Homicidal Intention: No Insight: Poor Judgment: Poor Assessment and Plan - Assessment (1) Schizoaffective disorder, bipolar type Code(s): F25.0 - Schizoaffective disorder, bipolar type Status: Acute - Plan Plan: Psychiatric condition is improving with current medication treatment. I did recommend the patient allow us to initiate a long-acting injectable antipsychotic prior to discharge. She declines long-acting injectable today but is agreeable to revisiting it tomorrow. I will continue current psychotropics as ordered. Continue to monitor on the inpatient unit. Continue other medications and care as ordered. Justification for Continued Inpatient Stay: Risk for decompensation in less restrictive environment. Discharge Planning: Possible discharge later in the week. Follow up on collateral from family. Request Healthcare Surrogate/Guardian Advocate?: No
[2018-07-22] MEDS: Divalproex 500 MG DR Tablet PO SCH ×2 (08:43→20:12)
--- NOTE | 2018-07-22 11:16 | P.PNPSY ---
Subjective Chief Complaint: Psychosis Remarks: Patient seen and examined with nurse. Chart reviewed. Case discussed with nursing staff. No behavioral issues noted overnight. Case discussed in treatment team. Counselor has reached out to the patient's mother who reportedly feels that the patient needs additional time on the inpatient unit for stabilization. Mother's main concern is reportedly medication adherence in less restrictive setting. I again revisit long-acting injectable option with patient today, and she once again declines initiation of a long-acting injectable antipsychotic. She denies SI or HI. Denies AVH. Affect is once again more reactive, although she continues to seclude in her room although she has been eating and attending to hygiene tasks. This behavior does not seem to have any basis in paranoia or social anxiety with questioning. Patient says she is simply not very gregarious by nature. Denies side effects from medications. No physical complaints. Vital Signs Temp Pulse Resp BP Pulse Ox 07/22/18 06:16 98.0 F 73 18 126/56 L 100 07/21/18 17:19 98.0 F 89 18 170/83 H 100 Labs reviewed. No new labs. Review of Systems All other systems reviewed negative except as stated in HPI Mental Status Examination Appearance: Appropriate Consciousness: Alert Orientation: Person, Place (At least) Motor Activity: Other (No abnormal motor movements noted) Speech: Unremarkable Language: Adequate Fund of Knowledge: Adequate Attention and Concentration: Easily distracted Memory: Unremarkable Mood: Appropriate Affect: Appropriate Thought Process & Associations: Intact Thought Content: Appropriate Hallucination Type: None Delusion Type: None Suicidal Ideation: No Suicidal Plan: No Suicidal Intention: No Homicidal Ideation: No Homicidal Plan: No Homicidal Intention: No Insight: Poor Judgment: Poor Assessment and Plan - Assessment (1) Schizoaffective disorder, bipolar type Code(s): F25.0 - Schizoaffective disorder, bipolar type Status: Acute - Plan Plan: Continue current psychotropics as ordered. Continue to monitor on the inpatient unit. Continue other care as ordered. I will try once again tomorrow to have the patient consent for a long-acting injectable antipsychotic , as I do believe this would help address mother's concerns regarding medication nonadherence. However, I suspect that the patient's insight into need for treatment is chronically poor and is unlikely to be ameliorated by a longer inpatient psychiatric hospital stay. I will ask the counselor to meet with patient to try to improve insight into need for pharmacologic treatment. Justification for Continued Inpatient Stay: Risk for decompensation Discharge Planning: Anticipate discharge tomorrow Request Healthcare Surrogate/Guardian Advocate?: No
[2018-07-22] MEDS: traZODone 50 MG Tablet PO PRN (20:12)
[2018-07-23] MEDS: Divalproex 500 MG DR Tablet PO SCH (09:26)
--- NOTE | 2018-07-23 12:00 | P.DSPSY ---
Psychiatry Discharge Summary Inpatient Psychiatric care?: Yes Advance Directives: No Mental Health Advance Directive: No Health Care Proxy: No - Admission Admission Date: July 13, 2018 20:53 - Admission Diagnosis (1) Schizoaffective disorder, bipolar type Code(s): F25.0 - Schizoaffective disorder, bipolar type Brief History: Ms. Donaldson is a 48-year-old female with a history of bipolar disorder who presented initially voluntarily to the emergency department for psychiatric evaluation. She was evaluated by the psychiatric nurse practitioner and placed under a Grant act by the ED provider. Reviewing the electronic medical record, I note that the patient was psychiatrically admitted most recently under Dr. Mcdonald in 2012. She was on Depakote and Haldol at that time. I have also called over to [facility] where patient most recently sought outpatient care per her report, and the patient was receiving Haldol Decanoate and Geodon as well as Cogentin from them, although she apparently had not filled a prescription in some time. Patient seen and examined with nurse. Chart reviewed. Case discussed with nursing staff. On my examination today, the patient presents as psychomotor slowed. She is somewhat disheveled. She is fairly hypoverbal and affect is flat. Behavior seems somewhat disorganized. Poverty of thought is present. She denies AVH. She denies SI or HI. I can elicit no paranoia, although the patient is a little watchful, nor can I elicit any other delusional material. Mood is described as "all right." She does complain of poor sleep and says that her appetite is only "so-so." No hypomanic or manic symptoms. No depressive symptoms. Remainder of the psychiatric ROS is negative. No acute physical complaints. Past psychiatric history: The patient reports a history of bipolar disorder. She has followed outpatient at [facility] in the past. Most recent psychiatric admission was here at [facility]. She denies a history of suicide attempts. She does say that she has a history of violent behavior "sometimes." Family history: The patient reports there is a family history of bipolar illness. She denies a family history of suicide. Chemical dependency history: The patient reports that she drinks occasional alcohol. It does not sound like this is excessive. No reported history of DTs or seizures. No other substance use reported. Social history: Patient reports that she lives with her mother and brother. She has some college education. She previously was on SSI but says that she received her last check last month. Unclear why SSI has been discontinued. She denies any legal history. Denies any access to guns or firearms. She reports that she is buddhism "sometimes." She reports a history of trauma "sometimes." It does not appear that she is currently the victim of abuse or mistreatment. No reported PTSD symptoms. She does not have any particular hobbies. Tobacco Use In Past 30 Days: No How Often Do You Have a Drink Containing Alcohol: Monthly or less Hospital Course: Patient was admitted to a locked, inpatient psychiatric unit. Appropriate precautions were in place throughout patient's hospital stay. Patient was seen and examined on the unit by psychiatry and also visited by counselor. Psychotropic medications were adjusted. The patient was repeatedly offered a long-acting injectable antipsychotic but declined initiation of such an agent. There was no evidence of any suicidality or homicidality on the inpatient unit. Collateral information was obtained from the patient's mother by the counselor. On the day of discharge: Patient seen and examined with nurse. Chart reviewed. Case discussed with nursing staff who notes that the patient has been much more social and talkative. She has been requesting discharge per nursing staff. On my examination today, the patient says that she feels ready to leave the hospital. She denies any suicidal or homicidal ideation, intent or plan. I can elicit no depressive or hypomanic/manic symptoms. She denies any audiovisual hallucinations. I can elicit no delusional material. She denies side effects from medications. There is no evidence of hyperammonemic encephalopathy. She once again declines a long-acting injectable when I recommended it to her. No physical complaints. Suicide and violence risk assessment on day of discharge both suggest lower imminent risk from mental illness. There are no acute risk factors. She has no current affective disorder and is denying suicidal ideation. There is no evidence of impairment in reality construction, and patient's chronic psychotic illness is currently well controlled. Chronic/static risk factors are minimal ( no personal or family history of suicide/attempts, no evident substance use disorder). We will bolster protective factors by relinking the patient with outpatient psychiatric services. There is no evidence of self-care deficit at time of discharge. Patient has maximized benefit from this inpatient psychiatric hospital stay. She will be discharged home today with psychiatric follow-up as arranged by counselor. Patient is also to follow up with primary care. I have additionally ordered a follow-up ammonia level on discharge. Patient counseled to return to psychiatric emergency room for any concerning symptoms as part of a general safety plan. - Discharge Discharge Date: 07/23/18 - Discharge Diagnosis (1) Schizoaffective disorder, bipolar type Diagnosis: Principal (Stabilized) Code(s): F25.0 - Schizoaffective disorder, bipolar type Status: Acute Discharge Disposition: Home - Discharge Instructions Discharge Diet: Regular Diet Activities You Can Perform: Weight Bearing As Tolerat - Discharge Time <= 30 minutes Mental Status Examination Appearance: Appropriate Consciousness: Alert Orientation: x4 Motor Activity: Normal gait, Other (No hand tremor, no dystonia, no dyskinesia, no other motor abnormalities noted) Speech: Unremarkable Language: Adequate Fund of Knowledge: Adequate Attention and Concentration: Adequate Memory: Unremarkable Mood: Appropriate Affect: Appropriate (Fairly full and reactive) Thought Process & Associations: Intact, Logical, Goal directed, Linear Thought Content: Appropriate Hallucination Type: None Delusion Type: None Suicidal Ideation: No Suicidal Plan: No Suicidal Intention: No Homicidal Ideation: No Homicidal Plan: No Homicidal Intention: No Mental Status Exam Remarks: Insight and judgment are likely chronically poor. Discharge/Advance Care Plan - Results Vital Signs: Last Vital Signs Temp 98.1 F 07/23/18 05:50 Pulse 65 07/23/18 05:50 Resp 16 07/23/18 05:50 BP 101/70 07/23/18 05:50 Pulse Ox 100 07/23/18 05:50 Lab Results: Laboratory Results Hemoglobin A1c 4.9 % (4.3-6.0) 07/15/18 08:04 Triglycerides 57 mg/dL (42-150) 07/15/18 08:04 Cholesterol 130 mg/dL (120-200) 07/15/18 08:04 LDL Cholesterol, Calc 78 mg/dL (0-99) 07/15/18 08:04 HDL Cholesterol 40.5 mg/dL (40.0-60.0) 07/15/18 08:04 TSH 1.620 uIU/mL (0.358-3.740) 07/13/18 14:02 Valproic Acid 81 mcg/mL (50-100) 07/18/18 09:55 Summary of Procedures: None done Pending Results: None - Medications Number of antipsychotic medications at discharge: 1 - Discharge Care Plan Goals to Promote Your Health: * To prevent worsening of your condition and complications * To maintain your health at the optimal level Directions to Meet Your Goals: Take your medications as prescribed Follow your dietary instruction Follow activity as directed Keep your appointments as scheduled Take your immunizations and boosters as scheduled If your symptoms worsen call your PCP, if no PCP go to Urgent Care Center or Emergency Room For 24/06 questions related to your inpatient stay or results of tests pending at discharge, please contact Dr. Diony Faria MD at [phone] Smoking is Dangerous to Your Health. Avoid second hand smoking
== END 2018-07-23 16:25 | disposition home or self-care (01) ==
LOC: NEPE 12:52 → NEDA 20:53 → H260 21:00
PROVIDERS: ADMIT Psychiatry & Neurology Psychiatry; ATTEND Psychiatry & Neurology Psychiatry

== ENCOUNTER 2018-12-07 03:32 | Inpatient (IN) ==
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
[2018-12-07] MEDS ORDERED: Haloperidol Inj 5 MG/ML Ampul IM ONE (04:32)
[2018-12-07 06:06] LABS: Baso % (Auto) 0.4 % (0.0-2.0); Eos % (Auto) 0.4 % (0.0-4.0); Hematocrit 30.2 % (35.0-46.0); Hemoglobin 10.3 gm/dL (11.6-15.3); Lymph # (Auto) 1.5 th/mm3 (1.0-4.8); Lymph % (Auto) 16.3 % (9.0-44.0); Mean Corpuscular HGB Conc 34.2 % (32.0-36.0); Mean Corpuscular Hemoglobin 27.3 pg (27.0-34.0); Mean Corpuscular Volume 79.8 fL (80.0-100.0); Mean Platelet Volume 8.7 fL (7.0-11.0); Mono % (Auto) 11.3 % (0.0-8.0); Neut # (Auto) 6.6 th/mm3 (1.8-7.7); Neut % (Auto) 71.6 % (16.0-70.0); Platelet Count 263 th/mm3 (150-450); Red Blood Count 3.78 mil/mm3 (4.00-5.30); Red Cell Distribution Width 16.2 % (11.6-17.2); White Blood Count 9.1 th/mm3 (4.0-11.0)
[2018-12-07 06:13] LABS: Alanine Aminotransferase 53 U/L (10-53); Albumin 3.6 g/dL (3.4-5.0); Anion Gap 8 meq/L (5-15); Aspartate Aminotransferase 81 U/L (15-37); Blood Urea Nitrogen 22 mg/dL (7-18); Calcium 8.6 mg/dL (8.5-10.1); Carbon Dioxide 29.4 meq/L (21.0-32.0); Chloride 101 meq/L (98-107); Glomerular Filtration Rate 63 mL/min (>89); Glucose,Random 84 mg/dL (74-106); Potassium 3.5 meq/L (3.5-5.1); Sodium 138 meq/L (136-145)
[2018-12-07 06:23] LABS: Alkaline Phosphatase 58 U/L (45-117); Total Protein 7.6 g/dL (6.4-8.2)
[2018-12-07] MEDS ORDERED: Aluminum/Magnesium/Simethacone Susp 30 ML UDC PO PRN (13:29)
[2018-12-07] MEDS ORDERED: Acetaminophen 325 MG Tablet PO PRN (13:29)
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
[2018-12-07] MEDS: Divalproex 500 MG ER Tablet PO SCH ×2 (16:23→21:12)
[2018-12-07] MEDS: Haloperidol 5 MG Tablet PO SCH (21:12)
[2018-12-08] MEDS: Divalproex 500 MG ER Tablet PO SCH ×2 (08:19→20:48)
[2018-12-08] MEDS: Haloperidol 5 MG Tablet PO SCH ×2 (08:19→20:48)
--- NOTE | 2018-12-08 12:26 | P.PNPSY ---
Subjective Chief Complaint: Follow-up for bipolar brando with psychosis Remarks: Patient seen for follow-up, chart reviewed, patient discussed with nursing staff ; we reviewed the patient's mood, thoughts, and behaviors from overnight and this morning. Nurse reports that the patient was very restless overnight and only had 2 hours of sleep. She was confused and incontinent to urine x1 overnight. Patient was seen in the day room where she was restless and getting up from a chair walking down the lambert and going back down, talking loudly to others and clearly disinhibited. Attempted to interview patient and she was guarded and appeared angry. She insists that she did not need to be here and that the police were against her. She wanted to be discharged to her parents care today and insists that she will continue her medications. Patient was asked about her decreased need for sleep and whether not she would be willing to take an additional sleep aid and she refused and insisted that her medications were fine she did not need any changes. Review of Systems All other systems reviewed negative except as stated in HPI Mental Status Examination Appearance: Disheveled, Malodorous (Severely) Consciousness: Lethargic (Patient has had details of Haldol and Ativan) Orientation: Person, Place, Situation Motor Activity: Other (Patient laying in bed unable to ascertain) Speech: Unremarkable, Other (Loud) Language: Adequate Fund of Knowledge: Adequate Attention and Concentration: Inadequate Memory: Impaired Mood: Irritable Affect: Irritable Thought Process & Associations: Disorganized Thought Content: Racing thoughts Hallucination Type: Auditory (Vague) Delusion Type: Paranoid Suicidal Ideation: No Suicidal Plan: No Suicidal Intention: No Homicidal Ideation: No Homicidal Plan: No Homicidal Intention: No Insight: Poor Judgment: Poor Assessment and Plan - Plan Plan: 12/07/2018: Initial assessment and plan At this time patient meets criteria for involuntary psychiatric hospitalization days under [place] I will do first opinion request second opinion. They have which she does have capacity to sign for her medications and treatment. We will restart her medications per her last hospitalization here of Haldol 5 mg twice daily, Cogentin 1 mg twice daily and Depakote 500 mg twice daily we will check a Depakote blood level on 12/11. Hope this be a fairly short stay and can return her to the community we need further investigation as to her living situation and mental health follow-up 12/08/2018: Unsatisfactory response to treatment; the patient remains labile, disorganized and aggressive and not sleeping. The patient is minimally cooperative with care and discharge focused. Patient is unable to engage in a logical discussion of her discharge plans or her treatment therefore she will need continued inpatient observation [place] order. Continue inpatient psychiatric treatment and observation, second opinion for [place] order will be done and placed on chart. Continue current medications as listed above. The patient was discharged on a dose of Haldol 10 mg twice a day on her previous admission therefore the goal will be to get her back up to this dose prior to discharge. Discharge planning: Patient will be returning to live with her family and discharge follow-up will be required with her psychiatrist within a week. Anticipate discharge by the end of this week. Justification for Continued Inpatient Stay: Patient remains an elevated risk for self-harm by self neglect and risk of harm to others through her paranoia and aggression and therefore will require further inpatient stabilization and preparation of a safe discharge plan. Moving patient to a less restrictive environment at this time may result in decompensation. Request Healthcare Surrogate/Guardian Advocate?: No
[2018-12-09] MEDS: Divalproex 500 MG ER Tablet PO SCH ×2 (08:25→20:38)
[2018-12-09] MEDS: Haloperidol 5 MG Tablet PO SCH (08:25)
[2018-12-09] MEDS ORDERED: Haloperidol 5 MG Tablet PO ONE (08:45)
--- NOTE | 2018-12-09 10:02 | P.TTN ---
- Patient Problems Problems: 1. Discharge planning 2. Medication compliance 3. Knowledge deficit 4. Lack of coping skills - Progress Toward Goals Provider Present: Other (Dr. Obrientitrating medications, patient is suffering from insomnia, patient remains for further stabilization.) Psychiatric Counselors Present: Everett Whyte Jr., [facility] (Patient reports she will return to her residence upon discharge.) Group Spec/RT/OT/SALAZAR Present: MARTIN Carpenter (Patient attends select groups and is redirectable.) - Documentation Teaching Recipient: Patient
--- NOTE | 2018-12-09 11:57 | P.PNPSY ---
Subjective Chief Complaint: Follow-up for bipolar brando with psychosis Remarks: Patient seen for follow-up, chart reviewed, patient discussed with nursing staff ; we reviewed the patient's mood, thoughts, and behaviors from overnight and this morning. Nurse reports the patient slept only 2 hours overnight. She is described as defiant, yelling, threatening, refusing to follow the rules. She did cooperate with her medications to include the increase of Haldol to 10 mg twice a day this morning. Patient was seen on the unit after breakfast. She was calm and pleasant with provider which was a significant change from yesterday. We once again discussed her need for medication to help her sleep at night and today she agreed to treatment with Restoril. She denies any auditory or visual hallucinations she denies any suicidal suicidal ideations. She was not is discharged focused today but expressed desire to be discharged back to her family once stable. Mental Status Examination Appearance: Disheveled Consciousness: Alert Orientation: Person, Place, Situation Motor Activity: Normal gait Speech: Unremarkable, Other (Loud) Language: Adequate Fund of Knowledge: Adequate Attention and Concentration: Inadequate Memory: Impaired Mood: Irritable Affect: Irritable Thought Process & Associations: Disorganized (Improving) Thought Content: Appropriate Hallucination Type: None Delusion Type: Paranoid Suicidal Ideation: No Suicidal Plan: No Suicidal Intention: No Homicidal Ideation: No Homicidal Plan: No Homicidal Intention: No Insight: Poor Judgment: Poor Assessment and Plan - Assessment (1) Schizoaffective disorder, bipolar type Code(s): F25.0 - Schizoaffective disorder, bipolar type Status: Acute - Plan Plan: 12/07/2018: Initial assessment and plan At this time patient meets criteria for involuntary psychiatric hospitalization days under the [place] I will do first opinion request second opinion. They have which she does have capacity to sign for her medications and treatment. We will restart her medications per her last hospitalization here of Haldol 5 mg twice daily, Cogentin 1 mg twice daily and Depakote 500 mg twice daily we will check a Depakote blood level on 12/11. Hope this be a fairly short stay and can return her to the community we need further investigation as to her living situation and mental health follow-up 12/08/2018: Unsatisfactory response to treatment; the patient remains labile, disorganized and aggressive and not sleeping. The patient is minimally cooperative with care and discharge focused. Patient is unable to engage in a logical discussion of her discharge plans or her treatment therefore she will need continued inpatient observation [place] order. Continue inpatient psychiatric treatment and observation, second opinion for [place] order will be done and placed on chart. Continue current medications as listed above. The patient was discharged on a dose of Haldol 10 mg twice a day on her previous admission therefore the goal will be to get her back up to this dose prior to discharge. Discharge planning: Patient will be returning to live with her family and discharge follow-up will be required with her psychiatrist within a week. Anticipate discharge by the end of this week. 12/09/2018: Fair response to treatment; patient remains very labile disorganized and aggressive with a decreased need for sleep but behavior and affect seem to improve this morning after an increase in her Haldol dose to 10 mg twice a day. Patient is also agreeable to using a sedative hypnotic as needed for insomnia. Continue inpatient psychiatric treatment and observation, involuntary status. Increase Haldol to 10 mg twice a day. Continue Depakote 500 mg twice a day Continue Cogentin 1 mg twice a day Discharge planning: Patient will be returning to live with her family and discharge follow-up will be required with her psychiatrist within a week. Anticipate discharge by the end of this week. Justification for Continued Inpatient Stay: Patient remains an elevated risk for self-harm by self neglect and will require further inpatient stabilization and preparation of a safe discharge plan. Moving patient to a less restrictive environment at this time may result in decompensation. Request Healthcare Surrogate/Guardian Advocate?: No
[2018-12-09] MEDS: Temazepam 15 MG Capsule PO PRN (20:38)
[2018-12-10] MEDS: Haloperidol Inj 5 MG/ML Ampul ONE ×2 (05:34→06:09)
[2018-12-10] MEDS ORDERED: Haloperidol Inj 5 MG/ML Ampul IM ONE (05:45)
[2018-12-10] MEDS: Divalproex 500 MG ER Tablet PO SCH ×2 (08:10→20:55)
--- NOTE | 2018-12-10 15:19 | P.PNPSY ---
Subjective Chief Complaint: Follow-up for bipolar brando with psychosis Remarks: Patient seen for follow-up, chart reviewed, patient discussed with nursing staff ; we reviewed the patient's mood, thoughts, and behaviors from overnight and this morning. Nursing reports that patient only slept 2 hours overnight and she was up most of the night pacing the hallway of the unit dancing talking loudly and pounding her fists and threatening manner towards staff and peers. Patient is described as refusing to follow the rules and being disruptive on the unit. Patient was given an emergency treatment order for Haldol and Ativan IM with good effect as patient was able to calm down but she did not go to sleep. The patient was observed throughout the day to be nodding off if she sat in the dayroom or and recreational therapy. Patient was asked about her reluctance to go to sleep and she admits that she typically sleeps during the day and stays up all night. She denies any recurrent nightmares. She denies a fear of sleep. We discussed potential adjunctive treatments to help with her mood sleep and psychosis and she agrees to Seroquel. We also discussed the use of Haldol and Ativan IM should she become agitated but she would not provided informed consent for those emergency treatments. Mental Status Examination Appearance: Disheveled Consciousness: Alert Orientation: Person, Place, Situation Motor Activity: Normal gait Speech: Unremarkable, Other (Loud) Language: Adequate Fund of Knowledge: Adequate Attention and Concentration: Inadequate Memory: Impaired Mood: Irritable Affect: Irritable Thought Process & Associations: Disorganized (Improving) Thought Content: Appropriate Hallucination Type: None Delusion Type: Paranoid Suicidal Ideation: No Suicidal Plan: No Suicidal Intention: No Homicidal Ideation: No Homicidal Plan: No Homicidal Intention: No Insight: Poor Judgment: Poor Assessment and Plan - Assessment (1) Schizoaffective disorder, bipolar type Code(s): F25.0 - Schizoaffective disorder, bipolar type Status: Acute - Plan Plan: 12/07/2018: Initial assessment and plan At this time patient meets criteria for involuntary psychiatric hospitalization days under the [place] I will do first opinion request second opinion. They have which she does have capacity to sign for her medications and treatment. We will restart her medications per her last hospitalization here of Haldol 5 mg twice daily, Cogentin 1 mg twice daily and Depakote 500 mg twice daily we will check a Depakote blood level on 12/11. Hope this be a fairly short stay and can return her to the community we need further investigation as to her living situation and mental health follow-up 12/08/2018: Unsatisfactory response to treatment; the patient remains labile, disorganized and aggressive and not sleeping. The patient is minimally cooperative with care and discharge focused. Patient is unable to engage in a logical discussion of her discharge plans or her treatment therefore she will need continued inpatient observation [place] order. Continue inpatient psychiatric treatment and observation, second opinion for [place] order will be done and placed on chart. Continue current medications as listed above. The patient was discharged on a dose of Haldol 10 mg twice a day on her previous admission therefore the goal will be to get her back up to this dose prior to discharge. Discharge planning: Patient will be returning to live with her family and discharge follow-up will be required with her psychiatrist within a week. Anticipate discharge by the end of this week. 12/09/2018: Fair response to treatment; patient remains very labile disorganized and aggressive with a decreased need for sleep but behavior and affect seem to improve this morning after an increase in her Haldol dose to 10 mg twice a day. Patient is also agreeable to using a sedative hypnotic as needed for insomnia. Continue inpatient psychiatric treatment and observation, involuntary status. Increase Haldol to 10 mg twice a day. Continue Depakote 500 mg twice a day Continue Cogentin 1 mg twice a day Discharge planning: Patient will be returning to live with her family and discharge follow-up will be required with her psychiatrist within a week. Anticipate discharge by the end of this week. 12/10/2018: Unsatisfactory response to treatment; the patient has been cooperative and calm during the day but the subsequent nights she has become aggressive labile and disorganized required an ETO this morning. Patient's Haldol was recently increased that may require more time to reach therapeutic response but adjunctive treatment with sedated of atypical antipsychotic is indicated due to the increased risks of harm to others posed by her behavior. Continue inpatient psychiatric treatment and observation. Continue Haldol 10 mg twice a day, Depakote 500 mg twice a day, Cogentin 1 mg twice a day, and Restoril 30 mg at bedtime as needed for insomnia. Add Seroquel 200 mg at bedtime. Justification for Continued Inpatient Stay: Patient remains an elevated risk for self-harm by self neglect and harm to others through aggression and will require further inpatient stabilization and preparation of a safe discharge plan. Moving patient to a less restrictive environment at this time may result in decompensation. Request Healthcare Surrogate/Guardian Advocate?: No
[2018-12-10] MEDS: Temazepam 15 MG Capsule PO PRN (20:56)
[2018-12-11] MEDS: Divalproex 500 MG ER Tablet PO SCH ×2 (08:15→20:49)
--- NOTE | 2018-12-11 13:11 | P.PNPSY ---
Subjective Chief Complaint: Follow-up for bipolar brando with psychosis Remarks: Patient seen for follow-up, chart reviewed, patient discussed with nursing staff ; we reviewed the patient's mood, thoughts, and behaviors from overnight and this morning. Nurse reports the patient slept much better overnight, she is in bed by 1030 but then awake at 330 getting approximately 5 hours of sleep. The patient is described as belligerent and threatening to nursing staff upon awakening but eventually was redirected back to her room and slept for another hour. Patient went to [place] this morning and judge clerk granted a 1 week continuance. The patient's thought processes remain disorganized as evidenced by her circumstantial and tangential speech. She denied any homicidal or suicidal ideations. Mental Status Examination Appearance: Disheveled Consciousness: Alert Orientation: Person, Place, Situation Motor Activity: Normal gait Speech: Unremarkable, Other (Loud) Language: Adequate Fund of Knowledge: Adequate Attention and Concentration: Inadequate Memory: Impaired Mood: Irritable Affect: Irritable Thought Process & Associations: Disorganized (Improving) Thought Content: Appropriate Hallucination Type: None Delusion Type: Paranoid Suicidal Ideation: No Suicidal Plan: No Suicidal Intention: No Homicidal Ideation: No Homicidal Plan: No Homicidal Intention: No Insight: Poor Judgment: Poor Assessment and Plan - Assessment (1) Schizoaffective disorder, bipolar type Code(s): F25.0 - Schizoaffective disorder, bipolar type Status: Acute - Plan Plan: 12/07/2018: Initial assessment and plan At this time patient meets criteria for involuntary psychiatric hospitalization days under the [place] I will do first opinion request second opinion. They have which she does have capacity to sign for her medications and treatment. We will restart her medications per her last hospitalization here of Haldol 5 mg twice daily, Cogentin 1 mg twice daily and Depakote 500 mg twice daily we will check a Depakote blood level on 12/11. Hope this be a fairly short stay and can return her to the community we need further investigation as to her living situation and mental health follow-up 12/08/2018: Unsatisfactory response to treatment; the patient remains labile, disorganized and aggressive and not sleeping. The patient is minimally cooperative with care and discharge focused. Patient is unable to engage in a logical discussion of her discharge plans or her treatment therefore she will need continued inpatient observation [place] order. Continue inpatient psychiatric treatment and observation, second opinion for [place] order will be done and placed on chart. Continue current medications as listed above. The patient was discharged on a dose of Haldol 10 mg twice a day on her previous admission therefore the goal will be to get her back up to this dose prior to discharge. Discharge planning: Patient will be returning to live with her family and discharge follow-up will be required with her psychiatrist within a week. Anticipate discharge by the end of this week. 12/09/2018: Fair response to treatment; patient remains very labile disorganized and aggressive with a decreased need for sleep but behavior and affect seem to improve this morning after an increase in her Haldol dose to 10 mg twice a day. Patient is also agreeable to using a sedative hypnotic as needed for insomnia. Continue inpatient psychiatric treatment and observation, involuntary status. Increase Haldol to 10 mg twice a day. Continue Depakote 500 mg twice a day Continue Cogentin 1 mg twice a day Discharge planning: Patient will be returning to live with her family and discharge follow-up will be required with her psychiatrist within a week. Anticipate discharge by the end of this week. 12/10/2018: Unsatisfactory response to treatment; the patient has been cooperative and calm during the day but the subsequent nights she has become aggressive labile and disorganized required an ETO this morning. Patient's Haldol was recently increased that may require more time to reach therapeutic response but adjunctive treatment with sedated of atypical antipsychotic is indicated due to the increased risks of harm to others posed by her behavior. Continue inpatient psychiatric treatment and observation. Continue Haldol 10 mg twice a day, Depakote 500 mg twice a day, Cogentin 1 mg twice a day, and Restoril 30 mg at bedtime as needed for insomnia. Add Seroquel 200 mg at bedtime. 12/11/2017: Fair response to treatment; the patient was able to sleep more last night and was less agitated when she did awake. She did not require ETO's. Continue inpatient psychiatric treatment and observation involuntary status. Continue Haldol 10 mg twice a day with Depakote 500 mg twice a day, Cogentin 1 mg twice a day, and Restoril 30 mg at bedtime as needed for insomnia. Increase Seroquel to 300 mg at bedtime for adjunctive treatment of her psychosis. Discharge planning: Attempts to reach her family has thus far failed but we will continue with the expectation that she will be able to return home once stabilized. Anticipate transitioning her oral Haldol to a monthly decanoate shot and continued adjunctive treatment with Depakote and Seroquel. Justification for Continued Inpatient Stay: Patient remains an elevated risk for self-harm by self neglect and risk of harm to others as evidenced by her recurrent threatening behavior and will require further inpatient stabilization and preparation of a safe discharge plan. Moving patient to a less restrictive environment at this time may result in decompensation. Request Healthcare Surrogate/Guardian Advocate?: No
[2018-12-11 15:20] LABS: Albumin 3.2 g/dL (3.4-5.0); Anion Gap 5 meq/L (5-15); Aspartate Aminotransferase 26 U/L (15-37); Blood Urea Nitrogen 16 mg/dL (7-18); Carbon Dioxide 29.3 meq/L (21.0-32.0); Chloride 103 meq/L (98-107); Glomerular Filtration Rate 81 mL/min (>89); Glucose,Random 86 mg/dL (74-106); Potassium 4.7 meq/L (3.5-5.1); Sodium 137 meq/L (136-145)
[2018-12-11 15:22] LABS: Alanine Aminotransferase 34 U/L (10-53); Alkaline Phosphatase 50 U/L (45-117); Total Protein 7.3 g/dL (6.4-8.2)
[2018-12-12] MEDS: Divalproex 500 MG ER Tablet PO SCH (08:22)
--- NOTE | 2018-12-12 11:48 | P.PNPSY ---
Subjective Chief Complaint: Follow-up for bipolar brando with psychosis Remarks: Patient seen for follow-up, chart reviewed, patient discussed with nursing staff ; we reviewed the patient's mood, thoughts, and behaviors from overnight and this morning. Nursing reports the patient slept much better and got 7 hours of rest overnight. There is no negative behaviors on the evening shift. Patient was calm and quiet throughout the night. The patient was seen at bedside before lunch and she was pleasant with interview but remains mildly disorganized and tangential; She made statements about working and making money and asked the provider about his plans for the weekend. We discussed her recent lab results with the ammonia level that was elevated and she expressed insight that it has been elevated in the past from the Depakote and she realizes she must find an alternative. We discussed risks benefits side effects and alternatives and she agrees to a trial of Trileptal. Review of Systems All other systems reviewed negative except as stated in HPI Mental Status Examination Appearance: Appropriate Consciousness: Alert Orientation: Person, Place, Situation Motor Activity: Normal gait Speech: Unremarkable Language: Adequate Fund of Knowledge: Adequate Attention and Concentration: Easily distracted (Improving) Memory: Unremarkable Mood: Good Affect: Appropriate (Congruent with mood and no signs of irritability or hostility in the last 24 hours) Thought Process & Associations: Disorganized (Improving), Tangential Thought Content: Appropriate Hallucination Type: None Delusion Type: None Suicidal Ideation: No Suicidal Plan: No Suicidal Intention: No Homicidal Ideation: No Homicidal Plan: No Homicidal Intention: No Insight: Fair (The patient recognized the potential for continued Depakote use to worsen her liver function) Judgment: Impulsive Assessment and Plan - Assessment (1) Schizoaffective disorder, bipolar type Code(s): F25.0 - Schizoaffective disorder, bipolar type Status: Acute - Plan Plan: 12/07/2018: Initial assessment and plan At this time patient meets criteria for involuntary psychiatric hospitalization days under the [place] act I will do first opinion request second opinion. They have which she does have capacity to sign for her medications and treatment. We will restart her medications per her last hospitalization here of Haldol 5 mg twice daily, Cogentin 1 mg twice daily and Depakote 500 mg twice daily we will check a Depakote blood level on 12/11. Hope this be a fairly short stay and can return her to the community we need further investigation as to her living situation and mental health follow-up 12/08/2018: Unsatisfactory response to treatment; the patient remains labile, disorganized and aggressive and not sleeping. The patient is minimally cooperative with care and discharge focused. Patient is unable to engage in a logical discussion of her discharge plans or her treatment therefore she will need continued inpatient observation [place] act order. Continue inpatient psychiatric treatment and observation, second opinion for [place] act order will be done and placed on chart. Continue current medications as listed above. The patient was discharged on a dose of Haldol 10 mg twice a day on her previous admission therefore the goal will be to get her back up to this dose prior to discharge. Discharge planning: Patient will be returning to live with her family and discharge follow-up will be required with her psychiatrist within a week. Anticipate discharge by the end of this week. 12/09/2018: Fair response to treatment; patient remains very labile disorganized and aggressive with a decreased need for sleep but behavior and affect seem to improve this morning after an increase in her Haldol dose to 10 mg twice a day. Patient is also agreeable to using a sedative hypnotic as needed for insomnia. Continue inpatient psychiatric treatment and observation, involuntary status. Increase Haldol to 10 mg twice a day. Continue Depakote 500 mg twice a day Continue Cogentin 1 mg twice a day Discharge planning: Patient will be returning to live with her family and discharge follow-up will be required with her psychiatrist within a week. Anticipate discharge by the end of this week. 12/10/2018: Unsatisfactory response to treatment; the patient has been cooperative and calm during the day but the subsequent nights she has become aggressive labile and disorganized required an ETO this morning. Patient's Haldol was recently increased that may require more time to reach therapeutic response but adjunctive treatment with sedated of atypical antipsychotic is indicated due to the increased risks of harm to others posed by her behavior. Continue inpatient psychiatric treatment and observation. Continue Haldol 10 mg twice a day, Depakote 500 mg twice a day, Cogentin 1 mg twice a day, and Restoril 30 mg at bedtime as needed for insomnia. Add Seroquel 200 mg at bedtime. 12/11/2018: Fair response to treatment; the patient was able to sleep more last night and was less agitated when she did awake. She did not require ETO's. Continue inpatient psychiatric treatment and observation involuntary status. Continue Haldol 10 mg twice a day with Depakote 500 mg twice a day, Cogentin 1 mg twice a day, and Restoril 30 mg at bedtime as needed for insomnia. Increase Seroquel to 300 mg at bedtime for adjunctive treatment of her psychosis. Discharge planning: Attempts to reach her family has thus far failed but we will continue with the expectation that she will be able to return home once stabilized. Anticipate transitioning her oral Haldol to a monthly decanoate shot and continued adjunctive treatment with Depakote and Seroquel. 12/12/2018: Good response to treatment; the patient is sleeping better since the addition of Seroquel and she is less hostile and disorganized since the dose was increased to 300 mg overnight. Unfortunately will need to replace her primary mood stabilizer due to recurrent elevations in ammonia levels that are likely associated with her Depakote use. Continue inpatient psychiatric treatment and observation under involuntary status. Continue Haldol 10 mg twice a day, Cogentin 1 mg twice a day, and Restoril 30 mg at bedtime as needed for insomnia. Continue Seroquel 300 mg at bedtime for adjunctive treatment of psychosis. Discontinue Depakote due to elevations in ammonia level. Start Trileptal 300 mg twice a day for treatment of bipolar disorder; anticipate titration to 600 mg twice a day if well tolerated. Discharge planning: Attempts to reach her family has thus far failed but we will continue with the expectation that she will be able to return home once stabilized. Anticipate transitioning her oral Haldol to a monthly decanoate shot and continued adjunctive treatment with Trileptal and Seroquel. Justification for Continued Inpatient Stay: Patient remains an elevated risk for self-harm by self neglect and risk of harm to others through aggressive behaviors and acting out on paranoia and therefore will require further inpatient stabilization and preparation of a safe discharge plan. Moving patient to a less restrictive environment at this time may result in decompensation. Request Healthcare Surrogate/Guardian Advocate?: No
--- NOTE | 2018-12-12 13:45 | P.TTN ---
- Patient Problems Problems: 1. Discharge planning 2. Medication compliance 3. Knowledge deficit 4. Lack of coping skills - Progress Toward Goals Provider Present: Other (Dr. Obrien, patient's labs reveal elevated ammonia, Dr. Obrien is changing antipsychotic medications due to noneffectiveness, patient remains for further stabilization) Psychiatric Counselors Present: Everett Whyte Jr., [facility] (Patient maintains that she will return to her residence where she lives with her parents upon discharge.) Group Spec/RT/OT/SALAZAR Present: MARTIN Carpenter (Patient attends select groups and is mostly redirectable.) - Documentation Teaching Recipient: Patient
[2018-12-12] MEDS: OXcarbazepine 300 MG Tablet PO SCH (20:07)
[2018-12-13] MEDS: OXcarbazepine 300 MG Tablet PO SCH ×2 (09:20→21:10)
--- NOTE | 2018-12-13 15:55 | P.PNPSY ---
Subjective Chief Complaint: Follow-up for bipolar brando with psychosis Remarks: Patient was seen and case discussed with nursing. Patient continues to improve. Her manic behavior is subsiding. She is tolerating her medications well. Interacting well with others. She denies suicidal or homicidal ideation intent or plan. Nonspecific auditory hallucinations Review of Systems All other systems reviewed negative except as stated in HPI Mental Status Examination Appearance: Appropriate Consciousness: Alert Orientation: Person, Place, Situation Motor Activity: Normal gait Speech: Unremarkable Language: Adequate Fund of Knowledge: Adequate Attention and Concentration: Easily distracted (Improving) Memory: Unremarkable Mood: Good Affect: Appropriate (Congruent with mood and no signs of irritability or hostility in the last 24 hours) Thought Process & Associations: Disorganized (Improving), Tangential Thought Content: Appropriate Hallucination Type: Auditory (Nonspecific) Delusion Type: None Suicidal Ideation: No Suicidal Plan: No Suicidal Intention: No Homicidal Ideation: No Homicidal Plan: No Homicidal Intention: No Insight: Fair (The patient recognized the potential for continued Depakote use to worsen her liver function) Judgment: Impulsive Assessment and Plan - Assessment (1) Schizoaffective disorder, bipolar type Code(s): F25.0 - Schizoaffective disorder, bipolar type Status: Acute - Plan Plan: Continue current treatment plan Justification for Continued Inpatient Stay: Patient would decompensate in a less restrictive setting Request Healthcare Surrogate/Guardian Advocate?: No
[2018-12-14] MEDS: OXcarbazepine 300 MG Tablet PO SCH ×2 (09:56→21:31)
--- NOTE | 2018-12-14 13:11 | P.PNPSY ---
Subjective Chief Complaint: Follow-up for bipolar brando with psychosis Remarks: Reviewed electronic medical record and discussed with nursing . Rounded with Yo RN. Patient in day room eating lunch. She is pleasant, calm and interacting with others. States that she is feeling alot better and her mood is stable. She [place]. Denies SI/HI. Review of Systems All other systems reviewed negative except as stated in HPI Mental Status Examination Appearance: Appropriate Consciousness: Alert Orientation: Person, Place, Situation Motor Activity: Normal gait Speech: Unremarkable Language: Adequate Fund of Knowledge: Adequate Attention and Concentration: Easily distracted (Improving) Memory: Unremarkable Mood: Good Affect: Appropriate (Congruent with mood and no signs of irritability or hostility in the last 24 hours) Thought Process & Associations: Intact Thought Content: Appropriate Hallucination Type: None Delusion Type: None Suicidal Ideation: No Suicidal Plan: No Suicidal Intention: No Homicidal Ideation: No Homicidal Plan: No Homicidal Intention: No Insight: Fair (The patient recognized the potential for continued Depakote use to worsen her liver function) Judgment: Impulsive Assessment and Plan - Assessment (1) Schizoaffective disorder, bipolar type Code(s): F25.0 - Schizoaffective disorder, bipolar type Status: Acute - Plan Plan: Continue current treatment plan Justification for Continued Inpatient Stay: Moving patient to a less restrictive environment may result in her decompensation. Request Healthcare Surrogate/Guardian Advocate?: No
[2018-12-15] MEDS: OXcarbazepine 300 MG Tablet PO SCH (08:09)
[2018-12-15] MEDS ORDERED: Haloperidol Decanoate Inj 50 MG/ML Ampul IM ONE (11:59)
[2018-12-15] MEDS ORDERED: Haloperidol Decanoate Inj 50 MG/ML Ampul IM SCH (12:15)
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
== END 2018-12-15 12:50 | disposition home or self-care (01) | DRG 885 ==
LOC: NEPC 03:32 → NEDA 14:58 → H270 16:35
PROVIDERS: ADMIT Psychiatry & Neurology Psychiatry; ATTEND Psychiatry & Neurology Psychiatry
CPT/HCPCS: 80053; 80164; 80307; 82140; 84443; 85025; 90772; 90782; 96372; 99285; J1630; J1631; J2060